=== PATIENT | female | born 1970 | race African-American/Black ===

== ENCOUNTER → 2020-01-17 13:03 | Outpatient (CLI) | payer BC, SELFPAY ==
--- NOTE | ~2020-01-17 | US_ITS ---
EXAMINATION: US soft tissue abdomen DATE: 01/17/2020 13:35 INDICATION: Nodule with 3 weeks of tenderness over a hysterectomy scar. TECHNIQUE: Multiple grayscale and Doppler ultrasound images of the region of concern at the anterior pelvic wall were obtained. COMPARISON: None FINDINGS/IMPRESSION: 9 x 10 x 4 mm hypoechoic nodular region with central tiny hyperdense focus located in the superficial subcutaneous tissues at the region of concern. Differential would include a suture granuloma, endome trial implant in the appropriate clinical setting or significantly less likely other primary neoplasm . Correlate with clinical history and could consider ultrasound-guided biopsy if clinically indicated . Reviewed, dictated and finalized at location B.
--- NOTE | ~2020-01-17 | US_ITS ---
EXAMINATION: US pelvic complete w TV DATE: 01/17/2020 13:36 INDICATION: Pelvic and perineal pain. History of breast cancer. Comparison:No prior studies for comparison. TECHNIQUE: Multiple transabdominal and endovaginal sonographic images of the pelvis performed. FINDINGS: The uterus and ovaries are surgically absent. No abnormal pelvic masses or fluid collection s. Bladder is unremarkable. IMPRESSION: 1. Unremarkable pelvic ultrasound status post total hysterectomy. Reviewed, dictated and finalized at location A.
== END ==
PROVIDERS: Visit Provider Obstetrics & Gynecology
DX: L90.5 Scar conditions and fibrosis of skin (principal); R10.2 Pelvic and perineal pain; R93.5 Abnormal findings on diagnostic imaging of other abdominal regions, including retroperitoneum; Z90.710 Acquired absence of both cervix and uterus
CPT/HCPCS: 76705; 76830; 76856

== ENCOUNTER 2022-11-14 09:05 | Emergency (ER) | payer BC, SELFPAY ==
--- NOTE | ~2022-11-14 | XR_ITS ---
EXAMINATION: XR ankle LT min 3V DATE: 11/14/2022 09:40 INDICATION: Lateral left ankle pain TECHNIQUE: Anteroposterior, oblique, mortise, and lateral views of the left ankle were obtained. COMPARISON: None. FINDINGS: Alignment is normal. No fracture. Joint spaces are well maintained. No ankle joint effusion. Modera te-sized plantar calcaneal spur. Additional enthesophytes at the anterior tip of the medial malleolus . Mild soft tissue swelling about the lateral malleolus. IMPRESSION: 1. No left ankle joint effusion or acute osseous abnormality. Reviewed, dictated and finalized at location A.
[2022-11-14 09:18] VITALS: BP 127/68; PULSE 55; RESP 16; TEMP 36.2; O2SAT 99
--- NOTE | 2022-11-14 09:25 | ED.LOWEXIN ---
HPI - Extremity Injury (Lower) General Chief Complaint: Extremity Injury, Lower Stated Complaint: left foot injury Time Seen by Provider: 11/14/22 09:50 Source: patient Mode of arrival: ambulatory Limitations: no limitations History of Present Illness HPI Narrative: 52-year-old female presents for complaint of left ankle pain and swelling after injury over 1 week ago. She states while she was walking out of her house she rolled her ankle. Has had pain radiating up the side of the left lower leg, behind the ankle and to the lateral aspect of the ankle. Endorses decreased ROM at the ankle due to pain. Has been elevating the leg when possible, applying ice/heat, and taking Tylenol. She has a walking boot from a previously broken toe, and has been wearing it while at work. Pt did not wear the boot to clinic. Denies numbness, tingling or weakness. Related Data Allergies Allergy/AdvReac Type Severity Reaction Status Date / Time iodine Allergy Unknown ANAPHYLAXIS Verified 11/14/22 09:18 latex Allergy Unknown Unknown Verified 11/14/22 09:18 minocycline Allergy Unknown Unknown Verified 11/14/22 09:18 shrimp Allergy Unknown ANAPHYLAXIS Verified 11/14/22 09:18 sumatriptan Allergy Unknown Unknown Verified 11/14/22 09:18 Review of Systems Review of Systems: CONSTITUTIONAL: Denies body aches, fever, chills EYES: Denies visual changes ENT: Denies rhinorrhea, congestion CARDIOVASCULAR: Denies chest pain, palpitations, or edema. RESPIRATORY: Denies cough or dyspnea. GASTROINTESTINAL: Denies abdominal pain, nausea, vomiting, or diarrhea. SKIN: Denies rash, itching, or wounds. MUSCULOSKELETAL: reports left ankle pain and swelling Denies back pain, or myalgia. NEUROLOGIC: Denies headache, numbness, tingling, or weakness. PSYCH: Denies depression or anxiety. All systems reviewed & are unremarkable except as noted in HPI and below PMFSH Past Medical History Medical History Acid reflux Anemia Diverticulosis IBS (irritable bowel syndrome) Malignant neoplasm of breast, estrogen receptor positive Migraines Surgical History Surgical History History of breast reconstruction History of hysterectomy with bilateral oophorectomy S/P endometrial ablation Family History Family History Mother Hypertension Father Family history of type 2 diabetes mellitus Social History Social History Smoking status: Never smoker Alcohol intake: current Comments At time of signature, I have reviewed and agree with nursing past medical, surgical, social and family history unless otherwise noted. Please see nursing chart for further information. There is no relevant family history pertinent to the presenting complaint Exam Narrative: GENERAL: Well-appearing, well-nourished, and in no acute distress. HEAD: Normocephalic, atraumatic. EYES: conjunctivae clear NECK: Supple. CHEST: Speaks in full sentences. No respiratory distress. HEART: Regular rate and rhythm. Normal and equal peripheral pulses. EXTREMITIES: Left lateral ankle swelling and tenderness to malleolus; foot with normal strength and sensation, decreased range of motion with flexion/extension/rotation, due to endorses pain with movement. No ecchymosis, No open wounds, or obvious deformity; alignment normal, pulse palpable and equal bilaterally, skin warm, dry, pink. Capillary refill less than 3 seconds. SKIN: Warm, dry, no rash. NEURO: Alert and oriented x3. PSYCH: Normal mood and affect Course Course Emergency Course: Patient is aware of diagnosis, understands and agrees to treatment plan. Anticipatory guidance given. Patient agrees to follow-up as directed and is aware of reasons to seek care at the emergency department. Portions of this record may
== END 2022-11-14 10:31 | disposition home or self-care (01) ==
PROVIDERS: Emergency Provider Nurse Practitioner Family; PCP Nurse Practitioner Family
DX: S93.402A Sprain of unspecified ligament of left ankle, initial encounter (principal); S96.912A Strain of unspecified muscle and tendon at ankle and foot level, left foot, initial encounter; X50.9XXA Other and unspecified overexertion or strenuous movements or postures, initial encounter; K21.9 Gastro-esophageal reflux disease without esophagitis; Z85.3 Personal history of malignant neoplasm of breast
CPT/HCPCS: 73610; 99213; G0463

== ENCOUNTER 2023-07-14 13:22 | Outpatient (CLI) | payer OTHER, SELFPAY ==
--- NOTE | ~2023-07-14 | US_ITS ---
US breast BI complete DATE: 07/14/2023 14:07 INDICATION: Mastodynia. History of bilateral mastectomy for breast cancer. TECHNIQUE: Real-time imaging of both breast areas COMPARISON: None FINDINGS: At 12:00 2 cm from the nipple. On the right there is a circumscribed hypoechoic 2.6 x 3.2 x 3.7 mm area without internal vascularity or posterior shadowing, most likely benign. Six-month follo w-up targeted ultrasound imaging is recommended. Alternatively, consider PET/CT imaging. IMPRESSION: BI-RADS Category 3: Probably benign Recommendation: 6 month targeted right breast ultrasound follow-up Alternatively, consider PET/CT imaging as clinically appropriate Reviewed, dictated and finalized at Location A. Reviewed, dictated and finalized at location A.
== END 2023-07-14 13:23 | disposition home or self-care (01) ==
LOC: ANHIMG 13:23
PROVIDERS: PCP Nurse Practitioner Family; Visit Provider Nurse Practitioner Family
DX: N64.4 Mastodynia (principal); Z85.3 Personal history of malignant neoplasm of breast; R92.8 Other abnormal and inconclusive findings on diagnostic imaging of breast
CPT/HCPCS: 76641

== ENCOUNTER 2023-07-29 16:18 | Outpatient (CLI) | payer OTHER, SELFPAY ==
--- NOTE | ~2023-07-29 | XR_ITS ---
EXAMINATION: XR chest 2V DATE: 07/29/2023 16:50 INDICATION: Chest pain TECHNIQUE: PA and lateral views of the chest were obtained. COMPARISON: None FINDINGS: The lungs are clear with no focal airspace opacities, pulmonary edema, pleural effusion or pneumothor ax. The cardiomediastinal silhouette is normal. Bilateral breast implants. Thoracic spondylosis. IMPRESSION: 1. No acute cardiopulmonary disease. Reviewed, dictated and finalized at location A.
== END 2023-07-29 16:19 ==
PROVIDERS: PCP Nurse Practitioner Family; Visit Provider Nurse Practitioner Family
DX: R07.9 Chest pain, unspecified (principal)
CPT/HCPCS: 71046

== ENCOUNTER 2024-08-27 10:41 | Emergency (ER) | payer OTHER, SELFPAY ==
--- OUTSIDE RECORDS SUMMARY | 2024-08-27 10:43 | XMS_ITS | Data Portability ---
Author Organization [facility] Address [address] [place] [address] Assessment Encounter Date Assessment Date Assessment LastModified by Organization Details LastModified Time 11/22/2014 11/22/2014 Full Podiatric history and physical performed. Evaluated patient's feet and discussed treatment options at length with the patient. The patient states that they understand all the information that was provided and that all questions were answered to their satisfaction. [email or web address] Not available 11/22/2014 12:24:59 12/18/2014 12/18/2014 continue CAM boot usage at all times. ICE, NSAID's as needed at home. f/u 2 weeks for new X-rays and possible removal of CAM boot. [email or web address] Not available 12/20/2014 14:28:43 Plan of Treatment Reminders Order Date Submit Date Provider Last Modified By Organization Details Last Modified Time Details Appointments None record ed. Lab None record ed. Referral None record ed. Procedures None record ed. Surgeries None record ed. Imaging None record ed. Medication Orders None record ed. Patient TargetsNo targets recorded. Patient Instructions Encounter Date Encounter Id Patient Instructions Last Modified By Organization Details Last Modified Time 11/22/2014 [id number] leg pain: care instructions [email or web address] Not available 11/22/2014 15:10:20 Reason for Referral None Reported. Problems Name Problem SNOMED Code Status Onset Date Resolution Date Notes Provider Name and Address Organization Details Recorded Time Closed fracture of phalanx of foot 36744301 [facility] 14:28:43 Pathological fracture 389338104 Active Herson Jillian null [place] - [facility] 5 14:28:43 Pain in lower limb 92994446 Active Herson Jillian null, [place] - [facility] 5 14:28:43 Problem Notes None recorded. Procedures Surgical History Date Name Laterality Status Provider Name and Address Organization Details Recorded Time 5 FRACTURE BOOT (L2116) completed iman hernandez dpm [address] [place] [address],[address], [place], [address], [place] - [facility] 11/22/2014 14:33:52 Imaging Results None recorded. Procedure Notes None recorded. Medical Equipment None Reported. Allergies Allergen ID Allergen Name Allergen Category Reaction Reaction Severity Criticality Documentation Date Start Date Code Code System Note Provider Name and Address Organization Details Recorded Time 6481 Imitrex medicatio n anaphylax is severe Not available 11/22/2014 99253 3 RxNorm Carmencita Bolaños [place], [place] - [facility] 5 12:23:46 6482 latex environme nt,medica tion rash moderate Not available 11/22/2014 22858 91 RxNorm Carmencita Bolaños [place], [place] - [facility] 5 12:23:46 6483 Minocin medicatio n rash moderate Not available 11/22/2014 56664 6 RxNorm Carmencita Miky null, [place] - [facility] 5 12:23:46 Medications Name Sig Start Date Stop Date Status Note LastModified by Organization Details LastModified Time estradiol 2 mg tablet active Not Available Not Available No t Available Vitals Date Recorded Body weight Body height Heart rate Body mass index (BMI) Systolic blood pressure Diastolic blood pressure Provider Name and Address Organization Details Last Updated DateTime 5 16677.9 9007 g 162.56 cm 69 /min 36.2 kg/m2 122 mm[Hg] 62 mm[Hg] Carmencita Potetran [place] - [facility] 5 12:23:45 Date Recorded Body weight Heart rate Body mass index (BMI) Body height Systolic blood pressure Diastolic blood pressure Provider Name and Address Organization Details Last Updated DateTime 5 08646.5 8244 g 69 /min 37.6 kg/m2 160.02 cm 122 mm[Hg] 64 mm[Hg] Carmencita Bolaños [place] - [facility] 5 15:29:20 Social History Question Answer Notes LastModified by Organizat ion Details LastModified Time Tobacco Smoking Status Never Smoker Not Available [employer] 01/16/2020 03:11:50 Are You Blind Or Do You Have Difficulty Seeing? No [id number] Information not available 01/16/2020 Are You Deaf Or Do You Have Serious Difficulty Hearing? No [id number] Information not available 01/16/2020 How Much Tobacco Do You Smoke? No [id number] Information not available 01/16/2020 Do You Have Difficulty Walking Or Climbing Stairs? No [id number] Information not available 01/16/2020 Sex: Unknown Functional Status Question Answer Note LastModified by Organization D etails LastModified Time Do you have difficulty doing errands alone? No [id number] Information not available 01/16/2020 Do you have difficulty dressing or bathing? No [id number] Information not available 01/16/2020 Mental Status Question Answer Note LastModified by Organization D etails LastModified Time Do you have difficulty concentrating, remembering or making decisions? Yes [id number] Information no t available 01/16/2020 Family History Relationship Description Onset Age of this Age Resolved Age Notes LastModified by Organization Details LastModified Time Mother Hypertensive disorder [email or web address] Not available 2014 15:29:21 Medical History Condition Response Varicose Veins N Diabetes N HIV or AIDS N Dyslipidemia N Gout N Bleeding Disorder N Stroke N Edema N Peripheral Vascular Disease N Back Pain N Polio N Hepatitis N Heart Disease N Rheumatoid Arthritis N Deep Vein Thrombosis N Leg Ulcers N Foot Deformity N Hypertension N Osteoporosis N Gynecological HistoryNo gynecological history recorded. Obstetrics History GPAL:G 0 P 0 0 0 0 Past Encounters Encounter ID Performer Location Encounter Start Date Encounter Closed Date Diagnosis/Indication Diagnosis SNOMED-CT Code Diagnosis ICD10 Code Diagnosis Note [id number] [facility] [address] [place] [address],[address] [address] 11/22/2014 12:02:22 11/22/2014 12:42:15 Closed fracture of phalanx of foot 12611273 Pathological fracture 745121655 Pain in lower limb 24014912 [id number] [facility] [address] [place] [address],[address] [place] [address] 12/18/2014 15:15:27 12/18/2014 16:03:52 Pain in lower limb 83887550 Pathological fracture 560895455 Closed fra cture of phalanx of foot 99413813 Health Concerns Section Related Observation LastModified by Organization Detai ls LastModified Time None Recorded Concern Status LastModified by Organization Details LastModified Time None Recorded Advance Directives Directive None Recorded Payers Encounter Date Sequence Insurance Name Policy Number Policy Zurita Covered Member ID Zurita Member ID Guarantor Name 11/22/2014 1 [facility] [place] [id number] Slime Miller [id number] Slime Miller 12/18/2014 1 [employer]: ([place]) [id number] Slime Miller [id number] Slime Miller Notes Date Note Type Note Provider Name and Address Organization Details Recorded Time 11/22/2014 text/html Slime found us online, went to urgent care which had x-ray taken and brought in CD, told left great toe is fractured. Two weeks ago garage door panel fell on foot and landed mostly on great toe. Pain is still intense and hard time bending toe. iman mary dpm [address] [place] [address],[address], [place], [address], [facility] 11/22/2014 14:55:32 12/18/2014 text/html Slime RTC wearing left foot cam boot and states she feels foot is more stiff than painful now. Herson Jillian null, [place] - [facility] 12/20/2014 14:28:44 OBGyn Episode No OBEpisode recorded.
--- OUTSIDE RECORDS SUMMARY | 2024-08-27 10:43 | XMS_ITS | CONTINUITY OF CARE DOCUMENT ---
Author Name elliott gallagher Address Unknown Organization [facility] Address [address] [place] [address] Phone [phone] Care Team Providers Care Mortising Machine Operator Name Role Phone Brennen Espinoza MD Unavailable [phone] Yanely Evans MD Unavailable TUTU GONZALEZ Unavailable [phone] PROBLEMS Condition Status Date Provider Notes Cardiovascular screening active Erica luna [employer] Payer name Policy type / Coverage type [place] [employer] ID SELF PAY TREATMENT PLAN Date Name CT, Coronary Calcium Score CT, Coronary Calcium Score
--- OUTSIDE RECORDS SUMMARY | 2024-08-27 10:43 | XMS_ITS | Data Portability ---
Author Organization [place] - [facility] [employer], Main Office Address [address] [place] [address] Assessment No assessment recorded. Plan of Treatment Reminders Order Date Submit Date Provider Last Modified By Organization Details Last Modified Time Details Appointments None recorded. Lab HIV (1+2) antibodies, EIA, serum, reflex HIV-1 western blot (WB) 2024 025 THOMASTON [facility], [address], [place], [address], 5 09:08:16 RPR (rapid plasma reagin), serum 2024 025 [email or web address] 4 [facility], [address], [place], [address], 5 15:48:05 hepatitis C virus Ab, serum 2024 025 [email or web address] 4 [facility], [address], [place], [address], 5 15:48:05 herpes simplex virus 1 + 2 IgG panel, serum or plasma 2024 025 4 [facility], [address], [place], [address], 5 15:48:05 chlamydia trachomatis + neisseria gonorrhoeae + trichomonas vaginalis DNA panel, GARRETT+probe, urine 2024 025 THOMASTON [facility] [address], [place], [address], 5 11:15:09 Referral None recorded. Procedures None recorded. Surgeries None recorded. Imaging MRI, breast, screening, abbreviated - Please call patient to schedule. [address] [facility], [address], [place], [address], 11:54:11 home sleep study - Please call patient to schedule. 2024 025 [place] [address] [facility] ([facility]), [address], [place], [address], 11:54:11 Medication Orders prasterone (DHEA) 6.5 mg vaginal insert 2024 025 THOMASTON [id number], [address] [facility], [place], [place], [id number], 5 12:39:58 compounded medication 2022 023 [facility], [address] [facility], [place], [address], 3 10:38:35 Patient TargetsNo targets recorded. Patient InstructionsNo instructions recorded. Reason for Referral None Reported. Results Created Date Observation Date Name Description Value Unit Range Abnormal Flag Note LastModifiedBy Organization Detail LastModifiedTime 04/08/1904/08/2022 HEMOG LOBIN A1C HA1C 5.6 % 4.0-6. 0 Diabe gerard Scree ingrid Crite mame: <5.7% Consi stent with absen ce of diabe gerard 5.7-6 .4% Consi stent with incre ased risk for diabe gerard (pred iabet es) >OR=6 .5% Consi stent with diabe gerard REFER ENCE: Diabe gerard Care 2016, 39(Dyer ppl.1 ):s13 -s22 Not Available [facility] ([facility]) [address] [facility] [place], [address], 04/08/2022 21:20:21 04/08/19 23 04/08/2022 TSH thyroid-stim ulating hormone 1.420 uIU/m L 0.465- 4.680 Not Available [facility] (Lab) [address] [place], [address], 04/08/2022 21:17:54 04/08/19 23 04/08/2022 LIPID PANEL cholesterol 237 mg/dL 140-19 9 high NIH NICOLE NSUS RECOM MENDA TION FOR CHONG STERO L: ADULT CHILD LOW RISK: <200 <170 BORDE RLINE : <200- 239 ----- HIGH RISK: >240 >200 Not Available [facility] (Lab) [address] [place], [address], 04/08/2022 20:48:39 04/08/19 23 04/08/2022 LIPID PANEL triglyceride s 63 mg/dL 0-150 NIH NICOLE NSUS REPOR T RECOM MENDA TION FOR TRIGL YCERI DARREN: ADULT CHILD LOW RISK: <150 ----- BODER LINE: 150-1 99 ----- HIGH RISK: >200 ----- Not Available [facility] (Lab) [address] [place], [address], 04/08/2022 20:48:39 04/08/19 23 04/08/2022 LIPID PANEL HDL cholesterol 64 mg/dL 40- Not Available [facility] (Lab) [address] [place], [address], 04/08/2022 20:48:39 04/08/19 23 04/08/2022 LIPID PANEL LDL cholesterol, calculated 160 mg/dL 0-130 high NIH NICOLE NSUS REPOR T RECOM MENDA TIONS FOR LDL: ADULT CHILD LOW RISK <130 <110 (OPTI MAL LDL) <100 ----- BORDE RLINE : 130-1 59 ----- HIGH RISK: >160 >130 A TRIGL YCERI DE RESUL T >400 INVAL IDATE S THE CALCU LATIO N FOR LDL FRACT IONAT ION - THE LDL RESUL T WILL NOT BE REPOR KASSIE. Not Available [facility] (Lab) [address] [place], [address], 04/08/2022 20:48:39 04/08/19 23 04/08/2022 COMPR EHENS VISHAL METAB OLIC PANEL sodium 139 mmol/ L 137-14 5 Not Available [facility] (Lab) [address] [place], [address], 04/08/2022 20:48:32 04/08/19 23 04/08/2022 COMPR EHENS VISHAL METAB OLIC PANEL potassium 4.3 mmol/ L 3.5-5. 1 Not Available [facility] (Lab) [address] [place], [address], 04/08/2022 20:48:32 04/08/19 23 04/08/2022 COMPR EHENS VISHAL METAB OLIC PANEL chloride 103 mmol/ L 98-107 Not Available [facility] (Lab) [address] [place], [address], 04/08/2022 20:48:32 04/08/19 23 04/08/2022 COMPR EHENS VISHAL METAB OLIC PANEL carbon dioxide 31 mmol/ L 22-30 high Not Available [facility] (Lab) [address] [place], [address], 04/08/2022 20:48:32 04/08/19 23 04/08/2022 COMPR EHENS VISHAL METAB OLIC PANEL anion gap 9.3 mmol/ L 14-22 low Not Available [facility] (Lab) [address] [place], [address], 04/08/2022 20:48:32 04/08/19 23 04/08/2022 COMPR EHENS VISHAL METAB OLIC PANEL glucose 101 mg/dL 70-99 high Not Available [facility] (Lab) [address] [place], [address], 04/08/2022 20:48:32 04/08/19 23 04/08/2022 COMPR EHENS VISHAL METAB OLIC PANEL BUN 18 mg/dL 8-19 Not Available [facility] (Lab) [address] [place], [address], 04/08/2022 20:48:32 04/08/19 23 04/08/2022 COMPR EHENS VISHAL METAB OLIC PANEL creatinine 1.03 mg/dL 0.66-1 .25 Not Available [facility] (Lab) [address] [place], [address], 04/08/2022 20:48:32 04/08/19 23 04/08/2022 COMPR EHENS VISHAL METAB OLIC PANEL GFR >60 Refer ence Range : [place] [facility] GFR Healt hy Adult : >60 mL/mi n/1.7 3 m2 Chron ic Kidne y Disea se: 15-60 mL/mi n/1.7 3 m2 Kidne y Failu re: <15/m L/min /1.73 m2 www.n iddk. nih.g ov The MDRD study equat ion has not been valid ated in child raisa <18 years of age; pregn ant women ; the elder ly >85 years of age; or in some racia l or ethni c subgr oups, such as [facility] nics. Outsi de the valid ated martha eters , estim ated GFR is less accur ate, requi ring clini theodore judgm ent on a case- by-ca se basis . Clini theodore inter preta tion for other races and ages must be made by the clini giselle. The MDRD study equat ion has not been valid ated for the evalu ation of serum creat inine relat ed to nutri becky l statu s or medic ation usage . For perso ns <18 years of age, a pedia tric GFR calcu lator is avail able on the [facility] websi te: https ://da w.sahara harrison.o rg/pr ofess ional s/kdo qi/gf r_cal culat or Not Available [facility] (Lab) [address] [place], [address], 04/08/2022 20:48:32 04/08/19 23 04/08/2022 COMPR EHENS VISHAL METAB OLIC PANEL alkaline phosphatase 91 U/L 38-126 Not Available [facility] (Lab) [address] [place], [address], 04/08/2022 20:48:32 04/08/19 23 04/08/2022 COMPR EHENS VISHAL METAB OLIC PANEL alanine aminotransfe rase 20 U/L 0-35 Not Available [facility] (Lab) [address] [place], [address], 04/08/2022 20:48:32 04/08/19 23 04/08/2022 COMPR EHENS VISHAL METAB OLIC PANEL aspartate aminotransfe rase 25 U/L 15-37 Not Available [facility] (Lab) [address] [place], [address], 04/08/2022 20:48:32 04/08/19 23 04/08/2022 COMPR EHENS VISHAL METAB OLIC PANEL bilirubin, total 0.20 mg/dL 0.20-1 .30 Not Available [facility] (Lab) [address] [place], [address], 04/08/2022 20:48:32 04/08/19 23 04/08/2022 COMPR EHENS VISHAL METAB OLIC PANEL calcium 9.6 mg/dL 8.4-10 .2 Not Available [facility] (Lab) [address] [place], [address], 04/08/2022 20:48:32 04/08/19 23 04/08/2022 COMPR EHENS VISHAL METAB OLIC PANEL total protein 6.9 g/dL 6.3-8. 2 Not Available [facility] (Lab) [address] [place], [address], 04/08/2022 20:48:32 04/08/19 23 04/08/2022 COMPR EHENS VISHAL METAB OLIC PANEL albumin 4.0 g/dL 3.4-5. 0 Not Available [facility] (Lab) [address] [place], [address], 04/08/2022 20:48:32 04/08/19 23 04/08/2022 COMPR EHENS VISHAL METAB OLIC PANEL globulin 2.9 g/dL 2.6-4. 2 Not Available [facility] (Lab) [address] [place], [address], 04/08/2022 20:48:32 04/08/19 23 04/08/2022 COMPR EHENS VISHAL METAB OLIC PANEL A/G ratio 1.4 ratio 1.0-2. 0 Not Available [facility] (Lab) [address] [place], [address], 04/08/2022 20:48:32 04/08/19 23 04/08/2022 CBC W/O DIFFE RENTI AL white blood cells 7.3 x10'3 /uL 4.2-10 .8 Not Available [facility] (Lab) [address] [place], [address], 04/08/2022 20:18:01 04/08/19 23 04/08/2022 CBC W/O DIFFE RENTI AL red blood cells 4.72 x10'6 /uL 3.80-5 .20 Not Available [facility] (Lab) [address] [place], [address], 04/08/2022 20:18:01 04/08/19 23 04/08/2022 CBC W/O DIFFE RENTI AL hemoglobin 12.9 g/dL 12.0-1 5.6 Not Available [facility] (Lab) [address] [place], [address], 04/08/2022 20:18:01 04/08/19 23 04/08/2022 CBC W/O DIFFE RENTI AL hematocrit 41.8 % 35.7-4 5.7 Not Available [facility] (Lab) [address] [place], [address], 04/08/2022 20:18:01 04/08/19 23 04/08/2022 CBC W/O DIFFE RENTI AL mean red cell volume 88.6 fL 82.0-9 9.0 Not Available [facility] (Lab) [address] [place], [address], 04/08/2022 20:18:01 04/08/19 23 04/08/2022 CBC W/O DIFFE RENTI AL mean red cell hemoglobin 27.3 pg 27.0-3 3.0 Not Available [facility] (Lab) [address] [place], [address], 04/08/2022 20:18:01 04/08/19 23 04/08/2022 CBC W/O DIFFE RENTI AL mean RBC HGB concentratio n 30.9 g/dL 31.0-3 6.0 low Not Available [facility] (Lab) [address] [place], [address], 04/08/2022 20:18:01 04/08/19 23 04/08/2022 CBC W/O DIFFE RENTI AL red cell distribution width 13.0 % 11.8-1 5.5 Not Available [facility] (Lab) [address] [place], [address], 04/08/2022 20:18:01 04/08/19 23 04/08/2022 CBC W/O DIFFE RENTI AL platelets 273 x10'3 /uL 150-40 0 Not Available [facility] (Lab) [address] [place], [address], 04/08/2022 20:18:01 04/08/19 23 04/08/2022 CBC W/O DIFFE CARLINE AL mean platelet volume 12.0 fL 9.0-12 .4 Not Available [facility] (Lab) [address], [place], [address], 04/08/2022 20:18:01 11/15/19 23 11/14/2022 XR, ankle No observ ation record ed. [email or web address] [facility] [address], [place], [address], 11/30/2022 14:56:25 12/10/19 23 12/09/2022 CT, coron petr calci um score No observ ation record ed. [email or web address] [facility] [address], [place], [address], 12/10/2022 09:27:24 Result Notes None recorded. Problems Name Problem SNOMED Code Status Onset Date Resolution Date Notes Provider Name and Address Organization Details Recorded Time Cystic acne 02416902 Active 2022 EDMAR Fried [address], [address], [place], [address], [employer] 3 10:18:50 Obesity 043206075 Active 2022 EDMAR Fried [address], [address], [place], [address], [employer] 3 10:22:54 Hyperlipide jaja 65354511 Active 2022 EDMAR Fried [address], [address], [place], [address], [employer] 3 10:27:56 Menopausal flushing 759386441 Active 2022 EDMAR Fried [address], [address], [place], [address], [employer] 3 13:31:17 Pain of left wrist 0073021289743 02 Active 2022 Anmol Curiel, [employer] [address], [address], [place], [address], [employer] 3 13:38:40 Sleep apnea 62045360 Active 2024 Deirdre SierraYAMEL nortonP [address] [facility], [address], [place], [address], [employer] 5 12:23:07 Atrophic vaginitis 76320473 Active 2024 Deirdre Xavi [employer] [address], [address], [place], [address], [employer] 5 12:30:53 Viral upper respiratory tract infection 708637592 Active 2024 Deirdre Sierracierra [facility] [address], [place], [address], [employer] 5 09:58:07 Problem Notes None recorded. Procedures Surgical History Date Name Laterality Status Provider Name and Address Organization Details Recorded Time Hysterectomy completed Not Available [facility] 05/20/2022 22:21:58 bilateral reconstruction of breasts completed Not Available [facility] 05/20/2022 22:21:58 excision of bilateral breasts completed Not Available [facility] 3 22:21:58 Imaging Results None recorded. Procedure Notes None recorded. Medical Equipment None Reported. Allergies Allergen ID Allergen Name Allergen Category Reaction Reaction Severity Criticality Documentation Date Start Date Code Code System Note Provider Name and Address Organization Details Recorded Time 65996 latex environme nt,medica tion Not available Not available Not available 05/20/2022 34293 91 RxNorm Not Available formerly [facility] 3 22:23:00 58092 iodine medicatio n Not available Not available Not available 05/20/2022 5933 RxNorm Not Available formerly [facility] 3 22:23:00 39992 Imitrex medicatio n Not available Not available Not available 05/20/2022 65993 3 RxNorm Not Available formerly [facility] 3 22:23:00 Medications Name Sig Start Date Stop Date Status Note LastModified by Organization Details LastModified Time compounded medication Take one tab SL daily 2022 active Not Available Not Available Not Avai lable cyclobenzap rine 10 mg tablet TAKE 1 TABLET BY MOUTH EVERY 8 HOURS NEEDED FOR MUSCLE SPASMS 06/28 completed Not Available Not Available Not Available prednisone 10 mg tablet TAKE DIRECTED 09/15 completed Not Available Not Available Not Available azithromyci n 250 mg tablet TAKE 2 TABLETS BY MOUTH FOR 1 DAY THEN TAKE 1 TABLET BY MOUTH DAILY FOR 5 DAYS 06/28 completed Not Available Not Available Not Available hydrocodone 5 mg-acetamin ophen 325 mg tablet TAKE 1 TABLET BY MOUTH EVERY 4 TO 6 HOURS NEEDED FOR PAIN active Not Available Not Available No t Available ondansetron HCl 4 mg tablet TAKE 1 TABLET BY MOUTH EVERY 8 HOURS NEEDED FOR NAUSEA 06/28 completed Not Available Not Available Not Available spironolact one 100 mg tablet TAKE 1 TABLET BY MOUTH DAILY 2024 active Not Available Not Available Not Avai lable fluocinonid e 0.05 % topical ointment APPLY SMALL AMOUNT TOPICALLY TO THE AFFECTED AREA 2 TO 3 TIMES PER DAY active Not Available Not Available No t Available acetaminoph en 300 mg-codeine 30 mg tablet TAKE 1 TABLET BY MOUTH EVERY 6 HOURS NEEDED 06/28 completed Not Available Not Available Not Available tretinoin 0.05 % topical cream APPLY A PEA SIZED AMOUNT TO THE FACE EVERY NIGHT AT BEDTIME 06/28 completed Not Available Not Available Not Available peg-electro lyte solution 420 gram oral solution 06/28 completed Not Available Not Available Not Available triamcinolo ne acetonide 0.1 % topical cream APPLY TOPICALLY TO THE AFFECTED AREA TWICE DAILY AT ONSET OF FLARES. NO MORE THAN 3 WEEKS INAROW 06/28 completed Not Available Not Available Not Available oxycodone-a cetaminophe n 5 mg-325 mg tablet TAKE 1 TABLET BY MOUTH EVERY 4 TO 6 HOURS NEEDED FOR PAIN 06/28 completed Not Available Not Available Not Available omeprazole 10 mg capsule,del ayed release TAKE 1 CAPSULE BY MOUTH DAILY active Not Available Not Available No t Available cephalexin 500 mg capsule TAKE 1 CAPSULE BY MOUTH FOUR TIMES DAILY 06/28 completed Not Available Not Available Not Available triamcinolo ne acetonide 0.1 % topical ointment 06/28 completed Not Available Not Available Not Available docusate sodium 100 mg capsule TAKE 1 CAPSULE BY MOUTH TWICE DAILY active Not Available Not Available No t Available mupirocin 2 % topical ointment APPLY TOPICALLY TO THE AFFECTED AREA THREE TIMES DAILY 06/28 completed Not Available Not Available Not Available levofloxaci n 750 mg tablet TAKE 1 TABLET BY MOUTH DAILY active Not Available Not Available No t Available methylpredn isolone 4 mg tablets in a dose pack FOLLOW PACKAGE DIRECTION S active Not Available Not Available No t Available ondansetron 4 mg disintegrat ing tablet 06/28 completed Not Available Not Available Not Available naproxen 500 mg tablet 06/28 completed Not Available Not Available Not Available diazepam 5 mg tablet TAKE 1 TABLET BY MOUTH EVERY 8 HOURS NEEDED active Not Available Not Available No t Available amoxicillin 875 mg-potassiu m clavulanate 125 mg tablet TAKE 1 TABLET BY MOUTH TWICE DAILY FOR 10 DAYS 09/15 completed Not Available Not Available Not Available hydroxyzine pamoate 25 mg capsule TAKE 1 CAPSULE BY MOUTH EVERY 6 HOURS NEEDED 15 MINUTES BEFORE PAIN MEDICINE active Not Available Not Available No t Available clindamycin 1 % lotion APPLY TO THE AFFECTED AREA ON FACE ONCE DAILY 06/28 completed Not Available Not Available Not Available prasterone (DHEA) 6.5 mg vaginal insert Insert 1 vaginal insert every day by vaginal route as directed for 28 days. 2024 active Not Available Not Available Not Avai lable Ozempic 0.25 mg or 0.5 mg (2 mg/1.5 mL) subcutaneou s pen injector INJECT 0.5 MG SUBCUTANE OUSLY ONCE WEEKLY 06/28 completed Not Available Not Available Not Available Ozempic 1 mg/dose (4 mg/3 mL) subcutaneou s pen injector INJECT 1 MG SUBCUTANE OUSLY EVERY WEEK 06/28 completed Not Available Not Available Not Available BinaxNOW COVID-19 Ag Self Test kit TEST DIRECTED TODAY 06/28 completed Not Available Not Available Not Available Zepbound 2.5 mg/0.5 mL subcutaneou s pen injector ADMINISTE R 2.5 MG UNDER THE SKIN WEEKLY FOR 4 WEEKS 06/28 completed Not Available Not Available Not Available Vitals Date Recorded Body mass index (BMI) Body height Oxygen saturation Oxygen saturation in Arterial blood by Pulse oximetry Heart rate Body temperature Body weight Systolic blood pressure Diastolic blood pressure Provider Name and Address Organization Details Last Updated DateTime 3 42.1 kg/m2 157.48 cm 97 % 97 % 58 /min 95.9 [degF] 701553. 25 g 120 mm[Hg] 80 mm[Hg] Not Available [facility] 3 22:22:03 Date Recorded Body weight Body mass index (BMI) Body height Body temperature Heart rate Oxygen saturation Oxygen saturation in Arterial blood by Pulse oximetry Respiratory rate Systolic blood pressure Diastolic blood pressure Provider Name and Address Organization Details Last Updated DateTime 5 24878.1 9 g 39.9 kg/m2 157.48 cm 97.4 [degF] 53 /min 98 % 98 % 20 /min 134 mm[Hg] 82 mm[Hg] Mary Song RN [facility] [employer] 5 12:10:22 Date Recorded Body height Body temperature Heart rate Respiratory rate Oxygen saturation Oxygen saturation in Arterial blood by Pulse oximetry Systolic blood pressure Diastolic blood pressure Provider Name and Address Organization Details Last Updated DateTime 5 157.48 cm 97.5 [degF] 63 /min 20 /min 98 % 98 % 152 mm[Hg] 102 mm[Hg] Mary Song RN [facility] [employer] [facility] 5 11:44:03 Date Recorded Body height Body mass index (BMI) Body weight Oxygen saturation Oxygen saturation in Arterial blood by Pulse oximetry Heart rate Body temperature Systolic blood pressure Diastolic blood pressure Provider Name and Address Organization Details Last Updated DateTime 3 157.48 cm 39.7 kg/m2 18871.5 4 g 97 % 97 % 65 /min 94.9 [degF] 118 mm[Hg] 78 mm[Hg] Ludy Villa RN [facility] [employer] 3 09:36:08 Social History Question Answer Notes LastModified by Organizat ion Details LastModified Time Tobacco Smoking Status Never Smoker Not Available [facility] 05/20/2022 22:21:51 What Is Your Level Of Caffeine Consumption? Moderate Information not available 06/30/2024 In The 14 Days Before Symptom Onset, Have You Had Close Contact With A Laboratory-confi rmed COVID-19 While That Case Was Ill? No [id number] Information not available 05/20/2022 In The 14 Days Before Symptom Onset, Have You Had Close Contact With A Person Who Is Under Investigation For COVID-19 While That Person Was Ill? No [id number] Information not available 05/20/2022 What Type Of Diet Are You Following? REGULAR Information not available 06/28/2024 Have There Been Any Changes To Your Family Or Social Situation? Yes Getting , Recent Surgery Information not available 06/28/2024 Do You Use Insect Repellent Routinely? No Information not available 06/28/2024 Where Do You Live? [facility] Information not available 06/28/2024 Have You Ever Been Counseled For Unhealthy Alcohol Use? No [id number] Information not available 05/20/2022 Do You Have Any Pets? No Information not available 06/28/2024 Do You Use Your Seat Belt Or Car Seat Routinely? Yes Information not available 06/28/2024 Do You Have Smoke And Carbon Monoxide Detectors In Your Home? Yes Information not available 06/28/2024 Are You Passively Exposed To Smoke? No Information not available 06/28/2024 Are There Any Smokers In Your House? No Information not available 06/28/2024 Do You Participate In Social Media? Yes Information not available 06/28/2024 Do You Use Sunscreen Routinely? Yes Information not available 06/28/2024 Has Tobacco Cessation Counseling Been Provided? No [id number] Information not available 05/20/2022 Have You Recently Traveled Abroad? No [id number] Information not available 05/20/2022 Do You Have Any Dietary Restrictions? No [id number] Information not available 05/20/2022 Sex: Unknown Functional Status Question Answer Note LastModified by Organizat ion Details LastModified Time Do you use any illicit or recreational drugs? No [id number] Information not available 05/20/2022 Do you or have you ever used any other forms of tobacco or nicotine? No [id number] Information not available 05/20/2022 What is your level of alcohol consumption? Occasional [id number] Information not available 05/20/2022 Are you currently employed? Yes Information not available 06/28/2024 What is your occupation? real [email or web address] Information not available 06/28/2024 What is your exercise level? None Information not available 06/30/2024 Mental Status Question Answer Note LastModified by Organization D etails LastModified Time Do you feel stressed (tense, restless, nervous, or anxious, or unable to sleep at night)? [id number] Information not available 06/28/2024 Family History Relationship Description Onset Age of this Age Resolved Age Notes LastModified by Organization Details LastModified Time Mother Hypertensive disorder [id number] Not available 05/20/2022 22:21:58 Father Diabetes mellitus [id number] Not available 05/20/2022 22:21:58 Maternal Aunt Family history of malignant neoplasm Not available 2024 11:40:29 Medical History Condition Response CANCER: SPECIFY Y OBESITY Y HAVE YOU BEEN HOSPITALIZED OR SEEN IN [facility] ER IN THE PAST YEAR ? Y Gynecological History Statement/Question Response Date of Last Pap Smear Date of Last Colonoscopy Most Recent Mammogram Date of LMP Most Recent Bone Density Obstetrics History GPAL:G 0 P 0 0 0 0 Immunizations Vaccine Type Date Status Note Provider [facility] e and Address Organization Details Recorded Time COVID-19 mRNA, bivalent, original/Omicr on BA.1, Non-US Vaccine (Spikevax Bivalent), Moderna 06/13/2024 completed Mary Song RN [facility], [place] - [facility] [employer] [facility] 06/30/2024 11:41:03 Past Encounters Encounter ID Performer Location Encounter Start Date Encounter Closed Date Diagnosis/Indication Diagnosis SNOMED-CT Code Diagnosis ICD10 Code Diagnosis Note [id number] Margoth Gomez MD [facility] [address] [place] [address] 04/08/2022 00:00:00 04/08/2022 20:04:00 [id number] EDMAR Fried [facility] Rafita pedersen [address] [facility] [address] [address] [place] [address] 09/15/2022 09:22:51 09/15/2022 13:55:06 Cystic acne 36548500 L70.0 New problemPt believes it is s/e of the Ozempic. Seeing dermatolog y and started on clindamyci n and tretinoin. Obesity 276853977 E66.9 ChronicNot improved despite report of dieting/li festyle changes.Ad vised eat 3 meals daily with 1-2 healthy snacks, eliminate caloric drinks, no grazing btw meals, reduce packaged foods, portion control, modificati on of cooking style, low fat/low sugar items, 30 minutes of exercise at least 3x/week, reduce emotional/ stress eating, increase fruits/veg etables, take 15-20 minutes to eat.Pt unable to qualify for GLP-1 through insurance since she is not diabetic. Advised pt to trial compounded semaglutid e daily instead. Pt agrees to trial.Sema glutide 500mcg SL daily Hyperlipidemia [id number] E78.5 New finding on labstotal 237, ldl 160Recomme nd diet/exerc ise modificati ons. Increase intake of water/vege tables, decrease intake of greasy/fat ty/fried foods, and consider addition of daily fish oil supplement or niacin Menopausal flushing 1984 28123 N95.1 New problemDis cussed options to treat menopausal sx. Advised pt she is not a candidate for any HRT, including progestero ne, d/t E2 receptor positive breast cancer resulting in bilat mastectomy . Recommend pt consider antidepres elvis therapy instead as SSRIs and SNRIs have been shown to improve vasomotor sx. Pt to consider options and discuss during next office visit. Pain of left wrist 23475 [id number] 59024 M25.532 New problem s/p fall on 09/13/22Inj ured while roller skatingPer pt xrays negAdvised to continue with RICE and f/u with Dr. Lucas's office as scheduled. [id number] Peter Zamora MD [facility] [address] [address] 06/28/2024 11:52:02 06/28/2024 12:55:01 Adult health examination [id number] Z00.00 Patient is overall healthHeal th maintenanc e reviewedDi scussed diet and exercisePa tient questions answered Sleep apnea [id number] G47 .30 Sleep study many years ago, would like to repeat History of malignant neoplasm of breast [id number] Z85.3 Has lumpectomy and reconstruc tion with implants, is not seeing a cancer specialist Atrophic vaginitis 52511 000 N95.2 Contraindi cated for estrogen therapies due to breast cancer Venereal d isease screening [id number] Z11.3 Would like full panel [id number] Peter Zamora MD [facility] [address] [address] 06/30/2024 11:30:37 06/30/2024 12:33:15 Gynecologic examination [id number] Z01.419 Overall healthyDis cussed vaginal hygiene and safe sex practicesD iscussed monthly self breast examsPatie nt questions answeredMR I breast ordered Health Concerns Section Related Observation LastModified by Organization Detai ls LastModified Time None Recorded Concern Status LastModified by Organization Details LastModified Time None Recorded Advance Directives Directive None Recorded Payers Encounter Date Sequence Insurance Name Policy Number Policy Zurita Covered Member ID Zurita Member ID Guarantor Name 09/15/2022 1 [place] [id number] Slime Miller [id number] Slime Miller 06/28/2024 1 [facility] Slime Miller [id number] Slime Miller 06/30/2024 1 [facility] Slime Miller [id number] Slime Miller Notes Date Note Type Note Provider Name and Address Organization Details Recorded Time 09/15/2022 text/html 1. Pt in office for f/u on Mounjaro/Ozempic. Pt states insurance won't cover GLP-1s unless she is actually diabetic. Pt states she is hoping to get something similar because she was successful with weight loss. Her only complaint is that it caused her to break out on her chin really bad. Reports she is getting tretinoin and clindamycin from her energy crop farmer.2. Pt states that she fell on Wednesday while skating with her niece. Pt states that she reached back with left hand to catch herself and injured her wrist. Pt states that she went to and had an xray, was told there was no fx and advised to keep it wrapped, take naproxen, apply ice and elevate hand. Pt states she is concerned that she might have a tendon injury b/c she also has a hx of carpal tunnel syndrome.3. Pt c/o having hot flashes, would like to get on progesterone to help balance out her hormones. Pt aware she isn't able to take estrogen d/t estrogen receptor positive breast cancer. ED[facility] Fried [address], [place], [address], [email or web address] 09/15/2022 13:41:05 06/28/2024 text/html Slime Miller i s a 54 year old female patient here today to establish care. She has a breast revision surgery yesterday related to breast concern in 2018. She is currently taking diazepam 5 mg, hydroxyzine 25 mg, and [place] 5/325mg She sees a weight loss clinic ([facility]) and receives compounded tirzepatide. She has lost 40 lbs with this. She is paying $1,000 per month for this, is interested in arevalo pay through walkby She does have EMMA. She is unsure of her last sleep study. She does use a CPAP at home. She has a history of acne, she is taking spironolactone 100 mg. Is getting soon and would like a Full STI panel. Flu shot: declinesCOVID vaccines: x3Tdap: 2018 per ptWWE: recommendedMammogram : has implants, did do an ultrasound recentlyColonoscopy: 2022, repeat in 5 years EDMAR Ibanez [address], [place], [address], [email or web address] 06/28/2024 12:53:44 06/30/2024 text/html Pap/PelvicReport ed bypatient.Context:ap pt for screening pap/pelvic/breast exam; no gynecologic complaints Associated Factors:low risk sexual historyNotes:Patient had a total hysterectomy at 27 years oldHx of breast cancer, had a reconstruction surgery earlier this week, has some pain in the right breast Deirdre Hurley, PORT TRAFFIC MANAGER [address] [facility] [address], [place], [address], [place] [facility] 06/30/2024 12:30:46 OBGyn Episode No OBEpisode recorded.
--- OUTSIDE RECORDS SUMMARY | 2024-08-27 10:43 | XMS_ITS | Clinical Summary ---
Author Organization [facility] Address [address] [place] [address] Care Team Providers Care Digital Account Coordinator Name Role Phone None, Physician Primary Care Provider Unavailabl e Source Comments [facility],non-owned Affiliates and Associated Physician Practices is amultiple site organization consisting of ambulatory clinics and hospital sitesin [place], [place], [place] and [place]. This disclosure is being madepursuant to the Care Everywhere program and may not contain all information available regarding this patient. Last updated 17.[facility] Allergies Active Allergy Reactions Criticality Noted Date Comments Povidone Iodine Anaphylaxis High 03/26/2017 Latex Urticaria,Skin Reactions Medium 07/30/2015 Minocycline Urticaria,Skin Reactions Medium 07/30/2015 Shellfish Allergy Anaphylaxis,Shortnes s of Breath High 03/26/2017 Throat swelling Sumatriptan Anaphylaxis High Medications * Be aware that medications may not be up to date on this document. Alwaysverify current medications with the patient. B Complex Vitamins CAPS Take 1 capsule by mouth once daily Active Magnesium Oxide 400 MG Take 1 tablet by mouth once daily Active multivitamin daily tablet Take 1 (one) tablet by mouth daily with food Active Probiotic Product (PROBIOTIC DAILY PO) Take by mouth once daily Active Diindolylmethan e Take by mouth once daily OTC Estrogen enhancer \ AKA DIM Active clindamycin (Cleocin) 1 % lotion APPLY TO THE AFFECTED AREA ON FACE ONCE DAILY 3 Active mupirocin (Bactroban) 2 % ointment APPLY TOPICALLY TO THE AFFECTED AREA THREE TIMES DAILY 3 Active CPAP Use as directed Active Tirzepatide (MOUNJARO SC) Active Active Problems Problem Noted Date Diagnosed Date Breast cancer, left, overlapping sites 2017 02/19 Cancer Staging:Clinical stage from 03/09/2017:Stage 0(Tis (DCIS), N0, M0) - Signed by Melly Hernandez MD on 03/26/2017 Pathologic stage from 04/26/2017:Stage 0(Tis (DCIS), N0(i-), cM0) - Signed by Melly Hernandez MD on 04/26/2017 Overview (11/01/2017): Left, 3:00. High grade DCIS. Tis(DCIS)N0(i-)M0, stage 0. ER pos, IA neg 03/23/2017 [employer] testing on patient (done with Dr. Blount): No cancer causing genes. 3 variants of uncertain significance. Variant of uncertain significance of RALPH [c.5319+6_5319+7del]. VUS of CDKN2A (r69FIN3z) [c.369T>A (p.Vkr065Rrp) (aka H123Q (369T>A))]. VUS of MUTYH [c.1249C>T (p.Qab526Naw (aka R403C (1207C>T), c.1207C>T (p.Fto210Lty))]. [employer] panel genetic testing after 10/07/2015 includes: APC, RALPH, BARD1, BMPR1A, BRCA1, BRCA2, BRIP1, CDH1, CDK4, CDKN2A, CHEK2, EPCAM (large rearrangement only), GREM1, MLH1, MSH2, MSH6, MUTYH, NBN, PALB2, PMS2, POLD1, POLE, PTEN, RAD51C, RAD51D, SMAD4, STK11, TP53. Have copy. 11/01/2017 update: [employer] says VUS remain VUS. bx at [facility]: evgeny Jauregui, then dafne; Plastics: saw Consuelo, and saw Dr. Ontiveros S/p 04/21/2017 bilateral nipple sparing simple mastectomy, left sentinel node biopsy with immediate pre-pectoral breast reconstruction with tissue cotton picker operator and acellular dermal matrix via Ascencio pattern mastopexy incisions (dafne/Weston): 2.0 cm high grade DCIS. 2 neg nodes. Neg margin >10 mm. Right benign Atopic dermatitis 09/17/2015 Overview (06/21/2017): ICD-10 Update Disorder of pigmentation 07/30/2015 Acne vulgaris 07/30/2015 Encounters Date Type Department Care Team Description 06/26/2024 10:16 AM CDT Anesthesia Event [facility] [address] [place] [address] Jesus Berrios MD Vivian, Jayme S, PARTS REMOVER-HOUSEKEEPING DIRECTOR 06/26/2024 9:55 AM CDT - 06/26/2024 1:55 PM CDT Surgery [facility] [address] [place] [address] Redd Ontiveros MD EXCISION OF BILATERAL CHEST DOG EARS 06/26/2024 8:50 AM CDT - 06/26/2024 2:37 PM CDT Hospital Encounter [facility] [address] [place] [address] Redd Ontiveros MD Surgery General Discharge Disposition: Home or Self Care 06/26/2024 Travel 06/19/2024 Travel from Last 3 Months Family History Medical History Relation Name Comments Cancer - Breast Other 1 pat 1/2 aunt flor Conner huey in her 50s; mat 1/2 sister of patients father Cancer - Breast Other 2 pat 1/2 aunt again contra lateral breast age 53, Flores, twin of Dalila, living in her 50s; mat 1/2 sister of patients father Cancer - Colon Other 3 pat 1/2 aunt Yari, i n her 50s; mat 1/2 sister of patients father Cancer - Other Other 4 pat 1/2 uncle brain cancer , [place]; living in his 50s; mat 1/2 brother of patients father Relation Name Status Comments Brother Alive Father Alive Maternal Grandfather Maternal Grandmother Mother Alive Other 1 pat 1/2 aunt Alive Other 2 pat 1/2 aunt Alive Other 3 pat 1/2 aunt Other 4 pat 1/2 uncle Alive Paternal Grandfather Paternal Grandmother Alive Sister Alive Social History Tobacco Use Types Packs/Day Years Used Date Smoking Tobacco: Never Smokeless Tobacco: Never Tobacco Cessation:Counseling Given: Not Answered Alcohol Use Standard Drinks/Week Comments Yes 0 (1 standard drink = 0.6 oz pur e alcohol) social - 2 x months AUDIT-C Answer Date Recorded Q1: How often do you have a drink containing alc ohol? 2-4 times a month 06/26/2024 Q2: How many drinks containi ng alcohol do you have on a typical day when you are drinking? 1 or 2 06/26/2024 Q3: How often do you have si x or more drinks on one occasion? Never 06/26/2024 PHQ-2 Answer Date Recorded Patient Health Questionnaire-2 Score 0 12/03/2022 Comments No Sex and Gender Information Value Date Recorded Sex Assigned at Not on file Legal Sex Female 5:45 PM STAGE DIRECTOR Gender Identity Not on file Sexual Orientation Not on file Last Filed Vital Signs Vital Sign Reading Time Taken Comments Blood Pressure 105/64 06/26/2024 2:33 PM CDT Pulse 62 06/26/2024 2:33 PM CDT Temperature 36.8 C (98.3 F) 06/26/2024 2:03 PM CDT Respiratory Rate 16 06/26/2024 2:33 PM CDT Oxygen Saturation 98% 06/26/2024 2:33 PM CDT Inhaled Oxygen Concentration - - Weight 95.3 kg (210 lb 3.2 oz) 06/26/2024 9:14 A M CDT Height 157.5 cm (5' 2) 06/26/2024 9:14 AM CDT Body Mass Index 38.45 06/26/2024 9:14 AM CDT Plan of Treatment Health Maintenance Due Date Last Done Comments COLOGUARD (AGES 45-75) - COLON CA SCREENING 1972 CT COLONOGRAPHY - COLON CA SCREENING 1972 FIT - COLON CA SCREENING 1972 FLEX SIG - COLON CA SCREENING 1972 HIV SCREENING 06/05/1987 HEPATITIS C SCREENING 05/31/1990 DTAP/TDAP/TD VACCINES (1 - Tdap) 06/05/1991 HEPATITIS B VACCINE (1 of 3 - 19+ 3-dose series) 06/05/1991 MAMMOGRAM 03/04/2019 03/04/2017, 06/2016, 02/22/2017, Additional history exists PNEUMOCOCCAL VACCINE 50+ (1 of 1 - PCV) 2022 ZOSTER VACCINE (1 of 2) 2022 COVID-19 VACCINE (1 - season) 2023 DEPRESSION SCREENING 03/22/2024 12/03/2022 INFLUENZA VACCINE (Season Ended) 2024 LIPID TESTING 12/28/2028 12/29/2023, 12/03/2022 COLON MONITORING 07/18/2031 07/17/2021, 04/12/2018 COLONOSCOPY - COLON CA SCREENING 07/18/2031 07/17/2021, 04/12/2018 Colorectal Cancer Screening 07/18/2031 HIB VACCINE Aged Out No longer eligi ble based on patient's age to complete this topic HPV VACCINE Aged Out No longer eligi ble based on patient's age to complete this topic MENINGOCOCCAL (Group B) VACCINE SHARED DECISION-MAKING Aged Out No longer eligible based on patient's age to complete this topic MENINGOCOCCAL GROUPS A/C/Y/W VACCINE Aged Out No longer eligible based on patient's age to complete this topic Medical Devices Implanted Type Area Checker And Packer Device Identifier Shelf Expiration Date Model / Serial / Lot Xpd Tissue [id number] Brst 600ml Sty - [id number] Implanted:Qty: 1 on 04/21/2017 by Redd Ontiveros MD at [facility] Left: Breast [employer] 07/25/2020 133MV-15-T / [id number] / Artia Tissue Matrix 16 X 20 Cm Implanted:Qty: 1 on 04/21/2017 by Redd Ontiveros MD at [facility] Left: Breast 02/18/2019 [id number] / / [id number] Xpd Tissue [id number] Brst 600ml Sty - [id number] Implanted:Qty: 1 on 04/21/2017 by Redd Ontiveros MD at [facility] Right: Breast [employer] 09/08/2018 133MV-15-T / [id number] / Artia Tissue Matrix 16 X 20 Cm Implanted:Qty: 1 on 04/21/2017 by Redd Ontiveros MD at [facility] Right: Breast 02/18/2019 [id number] / / [id number] Impl Brst 800cc Chsv Natrelle [employer] - [id number] Implanted:Qty: 1 on 07/26/2017 by Redd Ontiveros MD at [facility] Right: Breast [employer] 11/23/2021 SCX-800 / [id number] / Impl Brst 800cc Chsv Natrelle [employer] - [id number] Implanted:Qty: 1 on 07/26/2017 by Redd Ontiveros MD at [facility] Right: Breast [employer] 01/27/2022 SCX-800 / [id number] / Ntrelle Inspira Soft Touch Breast Implant Smooth Round Extra Full Profile 800 Cc Implanted:Qty: 1 on 12/08/2017 by Redd Ontiveros MD at [facility] Right: Breast 06/06/2022 SSX-800 / [id number] / Ntrelle [employer] Soft Touch Breast Implant Smooth Round Extra Full Profile 800 Cc Implanted:Qty: 1 on 12/08/2017 by Redd Ontiveros MD at [facility] Left: Breast 09/06/2022 SSX-800 / [id number] / Impl Brst Natrelle [employer] Xfull Prfl - [id number] Implanted:Qty: 1 on 02/07/2024 by Redd Ontiveros MD at [facility] Right: Breast [employer] 04/27/2027 SSX-800 / [id number] / [id number] Impl Brst Natrelle [employer] Xfull Prfl - [id number] Implanted:Qty: 1 on 02/07/2024 by Redd Ontiveros MD at [facility] Left: Breast [employer] 01/11/2026 X-800 / [id number] / [id number] Procedures Procedure Name Priority Date/Time Associated Diagnosis Comments CARDIAC RHYTHM STRIP ORDER 06/27/2024 4:23 PM CDT PATHOLOGY TISSUE EXAM (STL) Routine 06/26/2024 10:41 AM CDT Diagnosis unknown IA SUSPENSION OF BREAST 06/26/2024 9:49 AM CDT Z85.3 Z90.13 N65.0 T85.42XS Special Needs BREAST IMPLANTS,ARE AVAILABLE - IA REVISION MERLINE-IMPLANT CAPSULE BREAST 06/26/2024 9:49 AM CDT Z85.3 Z90.13 N65.0 T85.42XS Special Needs BREAST IMPLANTS,ARE AVAILABLE - IA REVISION OF RECONSTRUCTED BREAST 06/26/2024 9:49 AM CDT Z85.3 Z90.13 N65.0 T85.42XS Special Needs BREAST IMPLANTS,ARE AVAILABLE - LIPID PROFILE Routine 12/03/2022 11:25 AM CDT Mixed hyperlipidemia MAMMOGRAPHY ORDER Routine 02/22/2017 from Last 3 Months or Most Recently Relevant to Health Maintenance Results * CARDIAC RHYTHM STRIP ORDER (06/27/2024 4:23 PM CDT) Narrative 06/27/2024 4:23 PM CDT Ordered by an unspecified provider. us Scanned Document CARDIAC SERVICES ORDERABLES Fin al Result * PATHOLOGY TISSUE EXAM (STL) (06/26/2024 10:41 AM CDT) Case Report Surgical Pathology Report Case: [id number] Authorizing Provider: Redd Ontiveros MD Collected: 06/26/2024 10:41 AM Ordering Location: [facility] [place] Received: 06/26/2024 01:35 PM [facility] Pathologist: Emelia Silveira MD Specimens: A) - Skin, left breast skin B) - Skin, right breast skin C) - Breast Capsule, RIGHT BREAST CAPSULE 06/27/2024 12:17 PM [facility] Final Diagnosis Skin of right breast, excision: Healing surgical site changes Negative for malignancy Skin of right breast, excision: Dermal scar and healing surgical site changes Negative for malignancy Breast capsule, right; partial capsulectomy: Fibrotic capsule with foreign body reaction to refractile silicone globules 06/27/2024 12:17 PM [facility] at 1216 CDT Clinical History POSTOPERATIVE DIAGNOSES: 1. History of breast carcinoma. 2. Acquired absence of bilateral breasts. 3. Deformity of bilateral reconstructed breast with nipple-areolar complex asymmetry and right implant malposition. PROCEDURE: 1. Excision of bilateral chest dog ear (left 2 x 5 cm, right 2 x 5 cm) with intermediate closure (left 6.2 cm, right 6.0 cm). 2. Right inferior capsulorrhaphy and partial capsulectomy with Ascencio pattern mastopexy. 06/27/2024 12:17 PM [facility] Gross Description There are 3 formalin filled specimen containers received. Specimen A labeled l eft breast skin consists of a 5.5 x 1.3 cm ellipse of brown wrinkled skin with up to 2.4 cm of fibrofatty breast tissue. Sectioning reveals areas of dense rubbery fibrous tissue with numerous focal areas of hemorrhage. Copy Chaser sections are submitted in A1 -2. Specimen B labeled r ight breast skin consists of a 5.5 x 1.5 cm ellipse of brown wrinkled skin with up to 2.3 cm of fibrofatty breast tissue. Sectioning reveals less than 10% fibrous tissue with few focal areas of hemorrhage throughout. Copy Chaser sections are submitted in B1-2 Specimen C labeled r ight breast capsule consists of an 8.5 x 4 x 0.3 cm portion of mcdermott glistening fibromembranous tissue consistent with implant capsule and up to 0.4 cm of fibrofatty breast tissue. Sectioning reveals unremarkable yellow-mcdermott adipose tissue throughout. Capsule has smooth, glistening appearance throughout. Copy Chaser sections are submitted in C1. 06/27/2024 12:17 PM [facility] Disclaimer All histochemical and/or immunohistochemical results are interpreted with controls that demonstrate appropriate staining reactions before reporting results. Note on use of immunocytochemistry reagents: This test was developed and its performance characteristic determined by [facility], Department of Laboratory Medicine. It has not been cleared or approved by the U.S. Food and Drug Administration (FDA). The FDA has determined that such clearance or approval is not necessary. The test is used for clinical purpose. It should not be regarded as investigational or for research. This laboratory is certified to perform high complexity testing. The performance characteristics of the IHC/CHRISTA assays have been validated on formalin-fixed paraffin embedded tissues only. The assays have not been validated on decalcified tissues. Results should be interpreted with caution. 06/27/2024 12:17 PM CDT [facility] Embedded Images 06/27/2024 12:17 PM CDT [facility] Pathology/Cytology TISSUE SPECIMEN FROM SKIN / Unknown 06/26/2024 10:41 AM CDT 06/26/2024 1:35 PM CDT Comment:Pre-op diagnosis: Z85.3 Z90.13 N65.0 T85.42XS Miscellaneous samples (specimen) TISSUE SPECIMEN FROM SKIN / Unknown 06/26/2024 10:42 AM CDT 06/26/2024 1:35 PM CDT Comment:Pre-op diagnosis: Z85.3 Z90.13 N65.0 T85.42XS Miscellaneous samples (specimen) CAPSULAR CONTRACTURE OF BREAST / Unknown 06/26/2024 11:29 AM CDT 06/26/2024 1:35 PM CDT Comment:Pre-op diagnosis: Z85.3 Z90.13 N65.0 T85.42XS Redd Ontiveros MD LAB - PATHOLOGY/CYTOLOGY ORDERA BLES Final Result [facility] [address] [id number] * (ABNORMAL) LIPID PROFILE (12/03/2022 11:25 AM CDT) Cholesterol 256(H) <200 mg/dL [facility] ACCOUNT BILL Triglycerides 66 <150 mg/dL [facility] ACCOUNT BILL HDL Cholesterol 76 >40 mg/dL [facility] ACCOUNT BILL VLDL Calculated 13 <=30 mg/dL [facility] ACCOUNT BILL LDL Calculated 167(H) <130 mg/dL [facility] ACCOUNT BILL Comment:FASTING Blood BLOOD SPECIMEN / Unknown 12/03/2022 11:25 AM CDT 12/03/2022 Narrative Resulting Agency Comment Lab Testing performed at: [facility] [address] [facility] [phone] [place] Trudy Evans DO LAB - CHEMISTRY ORDERABLES Final Result [facility] ACCOUNT BILL [address] [place] [address] * MAMMOGRAPHY ORDER (02/22/2017) Anatomical Region Laterality Modality Mammography us Tahira Soto PARTS REMOVER-BULLET LUBRICATING MACHINE OPERATOR MAMMO ORDERABLES Edited R esult - Final from Last 3 Months or Most Recently Relevant to Health Maintenance Insurance [facility] Advance Directives Documents on File Type Date Recorded Patient Copy Chaser Expl anation Adv Directive/Living Will/POA 02/07/2024 Adv Directive/Living Will/POA 11/06/2019 POA for HealthCare N o Blood Care Teams Digital Account Coordinator Relationship Specialty Start Date End Date None, Physician PCP - General 06/26/24
--- OUTSIDE RECORDS SUMMARY | 2024-08-27 10:44 | XMS_ITS | Referral Summary ---
Author Organization [facility] Address [address] [place] [id number] Phone Care Team Providers Care Educational Technician Name Role Phone Radha Cifuentes MD Primary Care Provider [phone] Allergies Active Allergy Reactions Criticality Noted Date Comments Iodine Anaphylaxis High 04/12/2018 Latex Rash,Other (See comments),Urticaria Medium 07/30/2015 Minocycline Rash Medium Shellfish Containing Products Anaphylaxis High 04/12/2018 Sumatriptan Anaphylaxis High 10/15/2022 Medications triamcinolone (KENALOG) 0.1 % creamIndication s:Rash Apply to affected area 1-2 times daily as needed. Avoid face and groin. 30 g 11/25/2022 Active Active Problems Problem Noted Date Diagnosed Date Rash 11/25/2022 Assessment & Plan (11/25/2022 3:43 PM CDT): Possible chigger bites Prednisone taper Kenalog ointment to the affected areas Daily zyrtec 7-10 days Discussed switching to tablet form of acetaminophen ER for fevers, SOB, lip or tongue swelling PCP for persisting symptoms Follow up with PCP for low HR, ER if you develop symptoms of dizziness, CP, SOB, syncope Acute non-recurrent sinusitis 01/14/2022 Assessment & Plan (01/14/2022 1:52 PM CDT): She is to use augmentin twice daily and will use the neti pot daily She is unable to use intranasal steroid Acute otitis media 01/14/2022 Assessment & Plan (01/14/2022 1:53 PM CDT): This is a recurrence She relates this to use of CPAP May need ENT evaluation if this does not resolve with antibiotics Annual physical exam 04/28/2021 Assessment & Plan (04/28/2021 12:15 PM CLAIMS ACCOUNT SPECIALIST): Encourage monthly self breast exams, every 6 mo dental, annual eye exams. Encourage increased vegetable, fruit, decreased salt, saturated fat, processed foods diet with increased physical activity. Labs ordered. Lumbar radiculopathy 03/31/2021 Assessment & Plan (03/31/2021 11:56 AM CLAIMS ACCOUNT SPECIALIST): Rx for medrol dose pack, ibuprofen, flexeril PT referral Encourage ergonomics, heat/ice to area, stretching F/u 4-6 wks Mild obstructive sleep apnea 03/08/2020 Overview (03/08/2020): - HST (02/29/20): AHI was 5.1 with O2 vickie of 86% - DME: [facility] Assessment & Plan (02/06/2022 10:23 AM CLAIMS ACCOUNT SPECIALIST): 1. Chronic, poorly controlled in the setting of not using her machine 2. Discussed using NeilMed sinus rinse to help with nasal congestion and postnasal drip 3. She was start using the machine and message me in 1 month to check efficacy data Assessment & Plan (05/17/2020 1:38 PM CLAIMS ACCOUNT SPECIALIST): 1. Good objective and subjective improvement with her mask 2. She is compliant with its use 3. The settings are good will continue the current settings 4. The only issue is the mask and waking her up at night 5. Will try switching her to the Dreamwisp Assessment & Plan (04/12/2020 10:27 AM CLAIMS ACCOUNT SPECIALIST): 1. Patient is having improved sleep quality and daytime energy 2. However she is having issues with her mask due to it causing her pain on the top of her head 3. Discussed different masks that may resolve this issue 4. Provided her with sample of the F&P Brevida 5. She also has higher residual AHI than desired, believe this will improve with continued use given over half are central in nature 6. Will continue current settings Assessment & Plan (03/08/2020 1:42 PM CLAIMS ACCOUNT SPECIALIST): 1. Reviewed sleep study results 2. Discussed treatment options 3. Patient decided on CPAP therapy 4. Will place order Closed fracture of phalanx of foot 01/18/2019 Gastritis due to Helicobacter species 07/20/2018 Assessment & Plan (07/20/2018 3:07 PM CDT): Treated by GI and has had resolution of her symptoms Burning with urination 04/26/2018 Assessment & Plan (04/26/2018 4:53 PM CLAIMS ACCOUNT SPECIALIST): She c/o pain with urination; will check urinalysis. Abdominal pain 04/21/2018 Overview (04/21/2018): Added automatically from request for surgery [id number] Change in bowel habits 04/04/2018 Overview (04/04/2018): Added automatically from request for surgery [id number] Lymphedema syndrome, postmastectomy 04/01/2018 Assessment & Plan (04/01/2018 12:13 PM CLAIMS ACCOUNT SPECIALIST): Pt is doing recommended daily massage and wearing lymphedema sleeves daily that was recommended by physical therapy Chronic midline back pain 04/01/2018 Assessment & Plan (04/28/2021 12:28 PM CLAIMS ACCOUNT SPECIALIST): Has improved some in last month and had medrol dose pack, flexeril and ibuprofen Upcoming appt with ortho scheduled 05/13 Irritable bowel syndrome wit h both constipation and diarrhea 04/01/2018 Assessment & Plan (04/01/2018 12:13 PM CLAIMS ACCOUNT SPECIALIST): Referral to gastroenterology due to chronic issues Eczema 04/01/2018 Assessment & Plan (04/01/2018 12:15 PM CLAIMS ACCOUNT SPECIALIST): Ordered fluocinonide ointment. Patient has used this in the past and it helped clear eczema. History of left breast cancer 04/01/2018 Assessment & Plan (04/01/2018 12:18 PM CLAIMS ACCOUNT SPECIALIST): Dr. Ontiveros, plastic surgeon is following her with Q5 year MRIs History of bilateral mastectomy 04/01/2018 Assessment & Plan (04/01/2018 12:18 PM CLAIMS ACCOUNT SPECIALIST): Dr. Ontiveros, plastic surgeon is following her with Q5 year MRIs History of reconstruction of both breasts 2018 Assessment & Plan (04/01/2018 12:18 PM CLAIMS ACCOUNT SPECIALIST): Dr. Ontiveros, plastic surgeon is following her with Q5 year MRIs Psychogenic general fatigue 04/01/2018 Assessment & Plan (04/01/2018 12:21 PM CLAIMS ACCOUNT SPECIALIST): Labs ordered today Referral to psychologist Morbid obesity with BMI of 40.0-44.9, adult 03/22 Assessment & Plan (04/28/2021 12:14 PM CLAIMS ACCOUNT SPECIALIST): Encouraged healthy diet and exercise through low sodium, low carbohydrate diet, with exercise. Assessment & Plan (03/31/2021 11:54 AM CLAIMS ACCOUNT SPECIALIST): Encouraged healthy diet and exercise through low sodium, low carbohydrate diet, with exercise. Assessment & Plan (04/12/2020 9:43 AM CLAIMS ACCOUNT SPECIALIST): - Discussed importance of losing weight to improve sleep apnea - Discussed how routine use of a CPAP machine can help with weight loss - Continue to monitor Assessment & Plan (02/23/2020 10:47 AM CLAIMS ACCOUNT SPECIALIST): Encouraged healthy diet and exercise through low sodium, low carbohydrate diet, with exercise. Assessment & Plan (04/01/2018 12:23 PM CLAIMS ACCOUNT SPECIALIST): Recommended mediterranean diet, increasing lean meats, vegetables, fruits, decreasing fast foods and salt intake Recommended increasing water intake to 118 oz daily Recommended not skipping meals Recommended exercise regimen of 30 minutes daily 5 days a week or 2.5-3 hours weekly Encounter for vitamin deficiency screening 04/01 Assessment & Plan (04/01/2018 12:27 PM CLAIMS ACCOUNT SPECIALIST): Vitamin D, B12, CMP, CBC, Iron levels ordered History of colon polyps 04/01/2018 Family history of colon cancer 04/01/2018 Thumb pain, left 04/01/2018 Assessment & Plan (07/20/2018 3:06 PM CDT): Trigger finger has been managed by surgery and she has had recurrent pain after injection. She will follow up with surgery Assessment & Plan (04/26/2018 4:52 PM CLAIMS ACCOUNT SPECIALIST): This has been a chronic ongoing issue; will check x ray; refer to occupational therapy and hand surgery for possible injection. Assessment & Plan (04/01/2018 12:28 PM CLAIMS ACCOUNT SPECIALIST): She describes this as a new pain, will assess at physical Generalized abdominal pain 04/01/2018 Assessment & Plan (04/01/2018 12:29 PM CLAIMS ACCOUNT SPECIALIST): Labs ordered CT scan ordered Colonoscopy ordered Breast cancer 06/15/2017 Overview (06/15/2017): Full bilateral mastectomy, No residual, no chemo meds Social History Tobacco Use Types Packs/Day Years Used Date Smoking Tobacco: Never Smokeless Tobacco: Never Tobacco Cessation:Counseling Given: Not Answered Alcohol Use Standard Drinks/Week Comments Yes 0 (1 standard drink = 0.6 oz pur e alcohol) AUDIT-C Answer Date Recorded Q1: How often do you have a drink containing alc ohol? 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 Not on file Not on file Last Filed Vital Signs Vital Sign Reading Time Taken Comments Blood Pressure 120/64 11/25/2022 3:01 PM CDT Pulse 51 11/25/2022 3:01 PM CDT Temperature 36.3 C (97.4 F) 11/25/2022 3:01 PM CDT Respiratory Rate 18 11/25/2022 3:01 PM CDT Oxygen Saturation 98% 11/25/2022 3:01 PM CDT Inhaled Oxygen Concentration - - Weight 96.6 kg (213 lb) 11/25/2022 3:01 PM CDT Height 157.5 cm (5' 2) 11/25/2022 3:01 PM CDT Body Mass Index 38.96 11/25/2022 3:01 PM CDT Plan of Treatment Scheduled Procedures Name Priority Associated Diagnoses Date/Ti me COLONOSCOPY Screening for colon cancer COLONOSCOPY Screening for colon cancer Procedures Procedure Name Priority Date/Time Associated Diagnosis Comments COLONOSCOPY 07/17/2021 2:53 PM CDT SCREENING MAMMOGRAM Routine 03/04/2017 3 :19 PM CLAIMS ACCOUNT SPECIALIST SERUM HEPATITIS C AB Routine 02/03/2016 11:52 AM CLAIMS ACCOUNT SPECIALIST from Last 3 Months or Most Recently Relevant to Health Maintenance Results * COLONOSCOPY (07/17/2021 2:53 PM CDT) Anatomical Region Laterality Modality Other Narrative Procedure Note Emelia Conroy MD - 07/17/2021 2:53 PM CDT [facility] Patient Name: Slime Miller Procedure Date: 07/17/2021 2:53 PM Date of : 1970 Admit Type: Outpatient Age: 51 Gender: Female Attending MD: Emelia Conroy M.D. Room: [facility] ENDOSCOPY ROOM 3 Note Status: Finalized Procedure: Colonoscopy Indications: High risk colon cancer surveillance: Personalhistory of adenoma > 1 cm with villous component (high risk adenoma), Last colonoscopy: March 2018 Referring MD: Margoth Duke F.N.PJason Providers: Emelia Conroy M.D. Medicines: Monitored Anesthesia Care Complications: No immediate complications. Estimated Blood Loss: Estimated blood loss was minimal. Procedure: Pre-Anesthesia Assessment: - Prior to the procedure, a History and Physicalwas performed, and patient medications, allergies and sensitivities were reviewed. The patient'stolerance of previous anesthesia was reviewed. - Immediately prior to administration ofmedications, the patient was re-assessed for adequacy to receive sedatives. - The risks and benefits of the procedure and the sedation options and risks were discussed with the patient. All questions were answered and informed consent was obtained. The benefits, risks and alternatives of theprocedure and sedation were discussed and informed consentwas obtained. All questions were answered. Please referto the signed informed consent document in the medical record. The scope was passed under direct vision.The [facility] [id number] endoscope was introducedthrough the anus and advanced to the terminal ileum, with identification of the appendiceal orifice and IC valve. The colonoscopy was performed without difficulty. The patient tolerated the procedurewell. The quality of the bowel preparation was evaluated using the BBPS (Hellier Bowel Preparation Scale)with scores of: Right Colon = 3, Transverse Colon = 3and Left Colon = 3 (entire mucosa seen well with no residual staining, small fragments of stool oropaque liquid). The total BBPS score equals 9. The bowel preparation used was GoLYTELY via split dose instruction. The quality of the bowel preparationwas excellent. Findings: The perianal and digital rectal examinations were normal. The terminal ileum appeared normal. A 2 mm polyp was found in the cecum. The polyp was sessile. The polyp was removed with a cold biopsy forceps. Resection and retrieval were complete. A few diverticula were found in the sigmoid colon. A tattoo was seen in the sigmoid colon. The tattoo site appearednormal. Hemorrhoids were found during retroflexion. Impression: - The examined portion of the ileum was normal. - One 2 mm polyp in the cecum, removed with a cold biopsy forceps. Resected and retrieved. - Diverticulosis in the sigmoid colon. - A tattoo was seen in the sigmoid colon. Thetattoo site appeared normal. - Hemorrhoids. Recommendation: - The patient will be observed post-procedure,until all discharge criteria are met. - Await pathology results. - Repeat colonoscopy in 5 years for surveillance. - Biopsy results are typically available within 7-10 days and you will be contacted with the results. If you have not recieved your results within this timeframe, please call [phone] regarding your results. - Contact Information: During normal business hours - Please call theNurse Coordinator: [phone] After hours, evening, nights, weekends and holidays- Please call the hospital gas burner operator at and ask for the GI fellow population geneticist. Attending Participation: I personally performed the entire procedure. Electronically Signed By: Emelia Conroy M.D. Emelia Conroy M.D. 07/17/2021 3:19:01 PM . Number of Addenda: 0 Note Initiated On: 07/17/2021 2:53 PM Recognized by the [place] for promoting quality in endoscopy Emelia Conroy MD ENDOSCOPY PROCEDURES Fin al Result * Screening Mammogram (03/04/2017 3:19 PM CLAIMS ACCOUNT SPECIALIST) Anatomical Region Laterality Modality Breast N/A Mammography 03/04/2017 3:19 PM CLAIMS ACCOUNT SPECIALIST Narrative 03/04/2017 3:27 PM CLAIMS ACCOUNT SPECIALIST DENISE RODRÍGUEZ M.D. FINAL REPORT ACC# Date Time Exam [id number] Mar 04, 2017 09:19:00 [facility] [id number] Procedure Mammo, unilat L Technologist(s): Kristen Interiano; ; [id number] Mar 04, 2017 09:01:00 [facility] [id number] Breast Bx Incl Loc Stereo L EXAMINATION: ORIGINAL REPORT LEFT BREAST VACUUM-ASSISTED CORE BIOPSY UTILIZING STEREOTACTIC GUIDANCE, ONE LESION/SITE; PLACEMENT OF A BIOPSY TISSUE MARKER CLIP; AND LEFT FULL FIELD DIGITAL POST-PROCEDURE MAMMOGRAM HISTORY: Abnormal mammogram. 46-year-old woman with screen detected pleomorphic and fine linear calcifications in a segmental distribution in the left breast, 3 o'clock position, spanning 5.1 cm. Stereotactic guided core needle biopsy is requested to evaluate for malignancy. COMPARISON: 02/22/2017, 02/05/2017 and 02/03/2016 PROCEDURE AND FINDINGS: The risks and potential benefits of the procedures were discussed with the patient and written informed consent was obtained. The patient was placed in the prone position on the stereotactic table with the LEFT breast in mediolateral compression and the area of interest was localized and targeted utilizing digital imaging with stereotaxis. The more anterior pleomorphic calcifications were targeted for biopsy. After sterile preparation of the skin, 1% lidocaine was utilized for local anesthesia at the skin puncture site and 2% lidocaine with epinephrine was utilized for deeper local anesthesia/hemostasis about the biopsy site. A small skin incision was made with a #11 scalpel blade. A 9 gauge Vidyard vacuum-assisted biopsy needle was then advanced through the skin incision to the level of the calcifications of interest in the lateral left breast from a lateral approach utilizing stereotactic guidance and a total of 6 tissue cores were obtained. Specimen radiograph showed calcifications within the sample. [A ModiFace Mini Cork tissue marker clip was then placed at the biopsy site. The needle was removed and hemostasis was achieved. A sterile bandage and an ice pack were applied. The tissue cores were submitted to surgical pathology in formalin for histologic analysis. The patient tolerated the procedure well and without evidence of significant immediate complication. The patient was given verbal as well as written post procedural instructions prior to release from the department. A two-view LEFT digital mammogram obtained post procedure demonstrates that the tissue marker clip is in the expected position. There is a small hematoma at the biopsy site. The attending radiologist, Dr. Denise Rodríguez, was present throughout the entire procedure. Dr. Leon (diagnostic international affairs vice president) also participated in this examination. IMPRESSION: Successful vacuum-assisted core needle biopsy of the LEFT breast utilizing stereotactic guidance. Pathology is pending. Electronically signed by: Denise Rodríguez M.D. ADDENDUM #1 Addendum #1 by CORBY Friedman [facility]- for Dr. 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 Calcifications associated with DCIS were identified. There was no definitive evidence of invasive carcinoma. These findings were reviewed by Drs. Denise Rodríguez and Angie Langston. This is a malignant finding and requires surgical intervention. The patient was notified of the biopsy results and recommendations by CORBY Friedman [facility] of the [facility] on 03/08/17, and is scheduled to see Dr. Karuna Blount for surgical consultation on 03/23/17. NOTE: 1. Breast MRI is recommended. 2. If breast conservation therapy is desired, bracketed wire localization utilizing two wires is recommended. Edited by: Regla Snell Electronically signed by: Denise Rodríguez M.D. Requested By: Tahira Chavez Dictated By: TISH LEON M.D. on Mar 04 2017 9:20A This document has been electronically signed by: DENISE RODRÍGUEZ M.D. on Mar 04 2017 9:25A on Mar 18 2017 8:30A This Addendum has been electronically signed by: DENISE RODRÍGUEZ M.D. on Mar 18 2017 8:27A [id number] RODRÍGUEZ M.D. FINAL REPORT Attending: TAHIRA CHAVEZ Requesting: Tahira Chavez Requesting Fax: Attending Fax: Attending ID: [id number] Requesting ID: [id number] Report To 1 ID: [id number] Report To 1 Name: , Report To 1 FAX: NextGen Order #: Procedure Note Miscellaneous, Not In File - 03/18/2017 DENISE RODRÍGUEZ M.D. FINAL REPORT ACC# Date Time Exam [id number] Mar 04, 2017 09:19:00 [facility] [id number] Procedure Mammo, unilat L Technologist(s): Kristen Interiano; ; [id number] Mar 04, 2017 09:01:00 [facility] [id number] Breast Bx Incl Loc Stereo L EXAMINATION: ORIGINAL REPORT LEFT BREAST VACUUM-ASSISTED CORE BIOPSY UTILIZING STEREOTACTIC GUIDANCE, ONE LESION/SITE; PLACEMENT OF A BIOPSY TISSUE MARKER CLIP; AND LEFT FULL FIELD DIGITAL POST-PROCEDURE MAMMOGRAM HISTORY: Abnormal mammogram. 46-year-old woman with screen detected pleomorphic and fine linear calcifications in a segmental distribution in the left breast, 3 o'clock position, spanning 5.1 cm. Stereotactic guided core needle biopsy is requested to evaluate for malignancy. COMPARISON: 02/22/2017, 02/05/2017 and 02/03/2016 PROCEDURE AND FINDINGS: The risks and potential benefits of the procedures were discussed with the patient and written informed consent was obtained. The patient was placed in the prone position on the stereotactic table with the LEFT breast in mediolateral compression and the area of interest was localized and targeted utilizing digital imaging with stereotaxis. The more anterior pleomorphic calcifications were targeted for biopsy. After sterile preparation of the skin, 1% lidocaine was utilized for local anesthesia at the skin puncture site and 2% lidocaine with epinephrine was utilized for deeper local anesthesia/hemostasis about the biopsy site. A small skin incision was made with a #11 scalpel blade. A 9 gauge Vidyard vacuum-assisted biopsy needle was then advanced through the skin incision to the level of the calcifications of interest in the lateral left breast from a lateral approach utilizing stereotactic guidance and a total of 6 tissue cores were obtained. Specimen radiograph showed calcifications within the sample. [A ModiFace Mini Cork tissue marker clip was then placed at the biopsy site. The needle was removed and hemostasis was achieved. A sterile bandage and an ice pack were applied. The tissue cores were submitted to surgical pathology in formalin for histologic analysis. The patient tolerated the procedure well and without evidence of significant immediate complication. The patient was given verbal as well as written post procedural instructions prior to release from the department. A two-view LEFT digital mammogram obtained post procedure demonstrates that the tissue marker clip is in the expected position. There is a small hematoma at the biopsy site. The attending radiologist, Dr. Denise Rodríguez, was present throughout the entire procedure. Dr. Leon (diagnostic international affairs vice president) also participated in this examination. IMPRESSION: Successful vacuum-assisted core needle biopsy of the LEFT breast utilizing stereotactic guidance. Pathology is pending. Electronically signed by: Denise Rodríguez M.D. ADDENDUM #1 Addendum #1 by CORBY Friedman [facility]- for Dr. 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 Calcifications associated with DCIS were identified. There was no definitive evidence of invasive carcinoma. These findings were reviewed by Drs. Denise Rodríguez and Angie Langston. This is a malignant finding and requires surgical intervention. The patient was notified of the biopsy results and recommendations by CORBY Friedman [facility] of the [facility] on 03/08/17, and is scheduled to see Dr. Karuna Blount for surgical consultation on 03/23/17. NOTE: 1. Breast MRI is recommended. 2. If breast conservation therapy is desired, bracketed wire localization utilizing two wires is recommended. Edited by: Regla Snell Electronically signed by: Denise Rodríguez M.D. Requested By: Tahira Chavez Dictated By: TISH LEON M.D. on Mar 04 2017 9:20A This document has been electronically signed by: DENISE RODRÍGUEZ M.D. on Mar 04 2017 9:25A on Mar 18 2017 8:30A This Addendum has been electronically signed by: DENISE RODRÍGUEZ M.D. on Mar 18 2017 8:27A [id number] RODRÍGUEZ M.D. FINAL REPORT Attending: TAHIRA CHAVEZ Requesting: Tahira Chavez Requesting Fax: Attending Fax: Attending ID: [id number] Requesting ID: [id number] Report To 1 ID: [id number] Report To 1 Name: , Report To 1 FAX: NextGen Order #: Tahira Chavez TABLE GAMES DUAL RATE SUPERVISOR IMG MAMMO PROCEDURES Edited Result - Final * Serum Hepatitis C ab (02/03/2016 11:52 AM CLAIMS ACCOUNT SPECIALIST) HCV ab Negative NEG CDR HISTOR ICAL RESULTS Serum 02/03/2016 11:5 2 AM CLAIMS ACCOUNT SPECIALIST us Tahira Chavez TABLE GAMES DUAL RATE SUPERVISOR LAB BLOOD ORDERABLES Final R esult CDR HISTORICAL RESULTS from Last 3 Months or Most Recently Relevant to Health Maintenance [place] Advance Directives For more information, please contact: [phone] Documents on File Type Date Recorded Patient [employer] Technicians Expl anation ADVANCE DIRECTIVE 07/19/2021 6:50 AM POWER OF RECEIVING AND PROCESSING SUPERVISOR-MEDICAL * Full Code (Latest Code Status on File) Date Activated Date Inactivated Comments 07/17/2021 2:04 PM 07/17/2021 8:20 PM * Full Code Date Activated Date Inactivated Comments 05/10/2018 10:44 AM 05/10/2018 5:56 PM * Full Code Date Activated Date Inactivated Comments 04/12/2018 10:34 AM 04/12/2018 6:11 PM Care Teams Educational Technician Relationship Specialty Start Date End Date Radha Cifuentes MD [address] [place] [address] DR [place] [address] [address] PCP - General Internal Medicine 04/01/18
--- OUTSIDE RECORDS SUMMARY | 2024-08-27 10:44 | XMS_ITS ---
Author Organization [facility] Address [address] [facility] [address] [place] [phone] Phone Care Team Providers Care Customs Compliance Analyst Name Role Phone Radha Cifuentes MD Primary Care Provider [phone] Active Problems Problem Noted Date Diagnosed Date [...] 04/28/2021 Assessment & Plan (04/28/2021 12:15 PM TUBE WINDER): Encourage monthly self breast exams, every 6 mo dental, annual eye exams. Encourage increased vegetable, fruit, decreased salt, saturated fat, processed foods diet with increased physical activity. Labs ordered. Lumbar radiculopathy 03/31/2021 Assessment & Plan (03/31/2021 11:56 AM TUBE WINDER): Rx for medrol dose pack, ibuprofen, flexeril PT referral Encourage ergonomics, heat/ice to area, stretching F/u 4-6 wks Mild obstructive sleep apnea 03/08/2020 Overview (03/08/2020): - HST (02/29/20): AHI was 5.1 with O2 vickie of 86% - DME: [facility] Assessment & Plan (02/06/2022 10:23 AM TUBE WINDER): 1. Chronic, poorly controlled in the setting of not using her machine 2. Discussed using NeilMed sinus rinse to help with nasal congestion and postnasal drip 3. She was start using the machine and message me in 1 month to check efficacy data Assessment & Plan (05/17/2020 1:38 PM TUBE WINDER): 1. Good objective and subjective improvement with her mask 2. She is compliant with its use 3. The settings are good will continue the current settings 4. The only issue is the mask and waking her up at night 5. Will try switching her to the Dreamwisp Assessment & Plan (04/12/2020 10:27 AM TUBE WINDER): 1. Patient is having improved sleep quality [...] settings Assessment & Plan (03/08/2020 1:42 PM TUBE WINDER): 1. Reviewed sleep study results 2. Discussed treatment options 3. Patient decided on CPAP therapy 4. Will place order Closed fracture of phalanx of foot 01/18/2019 Gastritis due to Helicobacter species 07/20/2018 Assessment & Plan (07/20/2018 3:07 PM CDT): Treated by GI and has had resolution of her symptoms Burning with urination 04/26/2018 Assessment & Plan (04/26/2018 4:53 PM TUBE WINDER): She c/o pain with urination; will check urinalysis. Abdominal pain 04/21/2018 Overview (04/21/2018): Added automatically from request for surgery [id number] Change in bowel habits 04/04/2018 Overview (04/04/2018): Added automatically from request for surgery [id number] Lymphedema syndrome, postmastectomy 04/01/2018 Assessment & Plan (04/01/2018 12:13 PM TUBE WINDER): Pt is doing recommended daily massage and wearing lymphedema sleeves daily that was recommended by physical therapy Chronic midline back pain 04/01/2018 Assessment & Plan (04/28/2021 12:28 PM TUBE WINDER): Has improved some in last month and had medrol dose pack, flexeril and ibuprofen Upcoming appt with ortho scheduled 05/13 Irritable bowel syndrome wit h both constipation and diarrhea 04/01/2018 Assessment & Plan (04/01/2018 12:13 PM TUBE WINDER): Referral to gastroenterology due to chronic issues Eczema 04/01/2018 Assessment & Plan (04/01/2018 12:15 PM TUBE WINDER): Ordered fluocinonide ointment. Patient has used this in the past and it helped clear eczema. History of left breast cancer 04/01/2018 Assessment & Plan (04/01/2018 12:18 PM TUBE WINDER): Dr. Ontiveros, plastic surgeon is following her with Q5 year MRIs History of bilateral mastectomy 04/01/2018 Assessment & Plan (04/01/2018 12:18 PM TUBE WINDER): Dr. Ontiveros, plastic surgeon is following her with Q5 year MRIs History of reconstruction of both breasts 2018 Assessment & Plan (04/01/2018 12:18 PM TUBE WINDER): Dr. Ontiveros, plastic surgeon is following her with Q5 year MRIs Psychogenic general fatigue 04/01/2018 Assessment & Plan (04/01/2018 12:21 PM TUBE WINDER): Labs ordered today Referral to psychologist Morbid obesity with BMI of 40.0-44.9, adult 03/22 Assessment & Plan (04/28/2021 12:14 PM TUBE WINDER): Encouraged healthy diet and exercise through low sodium, low carbohydrate diet, with exercise. Assessment & Plan (03/31/2021 11:54 AM TUBE WINDER): Encouraged healthy diet and exercise through low sodium, low carbohydrate diet, with exercise. Assessment & Plan (04/12/2020 9:43 AM TUBE WINDER): - Discussed importance of losing weight to improve sleep apnea - Discussed how routine use of a CPAP machine can help with weight loss - Continue to monitor Assessment & Plan (02/23/2020 10:47 AM TUBE WINDER): Encouraged healthy diet and exercise through low sodium, low carbohydrate diet, with exercise. Assessment & Plan (04/01/2018 12:23 PM TUBE WINDER): Recommended mediterranean diet, increasing lean meats, vegetables, fruits, decreasing fast foods and salt intake Recommended increasing water intake to 118 oz daily Recommended not skipping meals Recommended exercise regimen of 30 minutes daily 5 days a week or 2.5-3 hours weekly Encounter for vitamin deficiency screening 04/01 Assessment & Plan (04/01/2018 12:27 PM TUBE WINDER): Vitamin D, B12, CMP, CBC, Iron levels ordered History of colon polyps 04/01/2018 Family history of colon cancer 04/01/2018 Thumb pain, left 04/01/2018 Assessment & Plan (07/20/2018 3:06 PM CDT): Trigger finger has been managed by surgery and she has had recurrent pain after injection. She will follow up with surgery Assessment & Plan (04/26/2018 4:52 PM TUBE WINDER): This has been a chronic ongoing issue; will check x ray; refer to occupational therapy and hand surgery for possible injection. Assessment & Plan (04/01/2018 12:28 PM TUBE WINDER): She describes this as a new pain, will assess at physical Generalized abdominal pain 04/01/2018 Assessment & Plan (04/01/2018 12:29 PM TUBE WINDER): Labs ordered CT scan ordered Colonoscopy ordered Breast cancer 06/15/2017 Overview (06/15/2017): Full bilateral mastectomy, No residual, no chemo meds Current Treatment and Therapy Plans No current plan information found. Past Treatment and Therapy Plans No past plan information found. Lifetime Dose Tracking * Chemical Lifetime Dose Automatic Entry Manual Entr y DLP 1,057 mGycm 1,057 mGycm 0 mGycm
--- OUTSIDE RECORDS SUMMARY | 2024-08-27 10:44 | XMS_ITS | Continuity of Care Document ---
Author Organization [facility] Address [address] [facility] [place] [address] Phone Care Team Providers Care Fancy Wire Drawer Name Role Phone Collin Varela MD Unavailable Unavailable Advance Directives Directive Yes / No Effective Date File Name No Information Encounters Encounter Description Practice Location Reason(s) For Visit Diagnoses Date Provider Providers Copied on Encounter [facility], [address] [place], [id number], [place] tel:[phone] [facility] No Information [facility]. [address] [place], [place], [id number], [place]. tel:[phone] Family History Family Member Type Diagnosis Age At Onset No Information Payers Payer name Insurance type Covered republican ID Authoriza tion(s) No Information Social History Type Description Quantity Date Captured Comments Sex Female Smoking Status No Information Chief Complaint And Reason For Visit No Information Plan Of Treatment Date Type Action Status No Information History Of Present Illness Encounter Date Complaint History Of Prese nt Illness No Information Instructions Date Instruction Additional Infor mation No Information Assessments Type Assessment Date No Information
--- OUTSIDE RECORDS SUMMARY | 2024-08-27 10:44 | XMS_ITS | Continuity of Care Document ---
Author Organization [facility] Address [address] [place] [address] Phone Care Team Providers Care Drafting Engineer Name Role Phone Collin Varela MD Unavailable Unavailable Allergies, Adverse Reactions, Alerts Substance Reaction Status Criticality AMITRAZ Anaphylaxis Active No Information ESTROGENS,ESTERIFIED Hives / Skin Rash Active No Information IODINE DizzinessLightheadedness Active No Information Medications Medication Instructions Dosage Effective Dates (start - stop) Status Comments spironolactone 100 mg tablet take 1 tablet by oral route every day 100 MG - Active Procedures Procedure Date PREV VISIT, [facility], AGE 40-64 OFFICE/OUTPATIENT VISIT, [facility] Advance Directives Directive Yes / No Effective Date File Name No Information Encounters Encounter Description Practice Location Reason(s) For Visit Diagnoses Date Provider Providers Copied on Encounter PREV VISIT, [facility], AGE 40-64 [facility], [address] [place], [id number], [place] tel:[phone] [facility] physical (chief complaint) Obstructive sleep apnea hypopneaAbnormal weight gainAcneEncounter for general adult medical exam w abnormal findings [address] [place], [id number] , [place]. tel:[phone] Family History Family Member Type Diagnosis Age At Onset Sister Problem Hypertension Mother Problem Hypertension Father Problem Diabetes mellitus Father Problem Renal disease Father Problem Stroke 51 Payers Payer name Insurance type Covered libertarian ID Authoriza tiyessy(s) [facility] CI [id number] Social History Type Description Quantity Date Captured Comments Alcohol Use Details Caffeine Use Details Unknown Tobacco Use Status Current non-smoker Smoking Status Never smoker Non-Smoking Tobacco Use Details : No Details Available : No Details Available Sex Female Vital Signs Date / Time: Height Weight BMI Pulse Rate Blood Pressure Temperature Respiratory Rate Body Surface Area Head Circumference BMI percentile Pulse Ox Inhaled Ox 5:26 PM 62.75 in 204.00 lbs 36.4 3 kg/m eter (2) 64 /min 116/72 mm[Hg] 97.2 F 16 /min Chief Complaint And Reason For Visit From encounter dated '04/11/2024 17:20'. physical (chief complaint). Description: Pt needs annual physical Pt takes tirzepatide for weight loss but she does not remember the dose. Pt has been losing weight with tirzepatide. Pt tolerating itok Pt has sleep apnea and she uses cpap nightly. Pt has mild sleep apnea Pt is interested to try touse zepbound for indication of sleep apnea. Pt also takes spironolactone for acne which works well.Pt denies any other complaints Plan Of Treatment Date Type Action Status Referral Ordered: SLEEP STUDY, ATTENDED ordered History Of Present Illness Encounter Date Complaint History Of Prese nt Illness physical Pt needs annual physical Pt takes tirzepatide for weight loss but she does not remember the dose. Pt has been losing weight with tirzepatide. Pt tolerating it ok Pt has sleep apnea and she uses cpap nightly. Pt has mild sleep apnea Pt is interested to try to use zepbound for indication of sleep apnea. Pt also takes spironolactone for acne which works well. Pt denies any other complaints Instructions Date Instruction Additional Infor mation No Information Assessments Type Assessment Date assessment Obstructive sleep apnea hypopnea assessment Abnormal weight gain assessment Acne assessment Encounter for general adult medi theodore exam w abnormal findings Mental Status Date Cognitive Assessment Orientation - Roy ed to time, place, person, situation.
--- OUTSIDE RECORDS SUMMARY | 2024-08-27 10:44 | XMS_ITS | Clinical Summary ---
Author Organization [facility] Address [address] [place] [id number] Phone Care Team Providers Care Telecommunications Cable Jointer Name Role Phone Radha Cifuentes MD Primary Care Provider [phone] Allergies Active Allergy Reactions Criticality Noted Date [...] 04/28/2021 Assessment & Plan (04/28/2021 12:15 PM [employer]): Encourage monthly self breast exams, every 6 mo dental, annual eye exams. Encourage increased vegetable, fruit, decreased salt, saturated fat, processed foods diet with increased physical activity. Labs ordered. Lumbar radiculopathy 03/31/2021 Assessment & Plan (03/31/2021 11:56 AM [employer]): Rx for medrol dose pack, ibuprofen, flexeril PT referral Encourage ergonomics, heat/ice to area, stretching F/u 4-6 wks Mild obstructive sleep apnea 03/08/2020 Overview (03/08/2020): - HST (02/29/20): AHI was 5.1 with O2 vickie of 86% - DME: [facility] Assessment & Plan (02/06/2022 10:23 AM [employer]): 1. Chronic, poorly controlled in the setting of not using her machine 2. Discussed using NeilMed sinus rinse to help with nasal congestion and postnasal drip 3. She was start using the machine and message me in 1 month to check efficacy data Assessment & Plan (05/17/2020 1:38 PM [employer]): 1. Good objective and subjective improvement with her mask 2. She is compliant with its use 3. The settings are good will continue the current settings 4. The only issue is the mask and waking her up at night 5. Will try switching her to the Dreamwisp Assessment & Plan (04/12/2020 10:27 AM [employer]): 1. Patient is having improved sleep quality [...] settings Assessment & Plan (03/08/2020 1:42 PM [employer]): 1. Reviewed sleep study results 2. Discussed treatment options 3. Patient decided on CPAP therapy 4. Will place order Closed fracture of phalanx of foot 01/18/2019 Gastritis due to Helicobacter species 07/20/2018 Assessment & Plan (07/20/2018 3:07 PM CDT): Treated by GI and has had resolution of her symptoms Burning with urination 04/26/2018 Assessment & Plan (04/26/2018 4:53 PM [employer]): She c/o pain with urination; will check urinalysis. Abdominal pain 04/21/2018 Overview (04/21/2018): Added automatically from request for surgery [id number] Change in bowel habits 04/04/2018 Overview (04/04/2018): Added automatically from request for surgery [id number] Lymphedema syndrome, postmastectomy 04/01/2018 Assessment & Plan (04/01/2018 12:13 PM [employer]): Pt is doing recommended daily massage and wearing lymphedema sleeves daily that was recommended by physical therapy Chronic midline back pain 04/01/2018 Assessment & Plan (04/28/2021 12:28 PM [employer]): Has improved some in last month and had medrol dose pack, flexeril and ibuprofen Upcoming appt with ortho scheduled 05/13 Irritable bowel syndrome wit h both constipation and diarrhea 04/01/2018 Assessment & Plan (04/01/2018 12:13 PM [employer]): Referral to gastroenterology due to chronic issues Eczema 04/01/2018 Assessment & Plan (04/01/2018 12:15 PM [employer]): Ordered fluocinonide ointment. Patient has used this in the past and it helped clear eczema. History of left breast cancer 04/01/2018 Assessment & Plan (04/01/2018 12:18 PM INS[employer]): Dr. Ontiveros, plastic surgeon is following her with Q5 year MRIs History of bilateral mastectomy 04/01/2018 Assessment & Plan (04/01/2018 12:18 PM INS[employer]ERTY): Dr. Ontiveros, plastic surgeon is following her with Q5 year MRIs History of reconstruction of both breasts 2018 Assessment & Plan (04/01/2018 12:18 PM INS[employer]ERTY): Dr. Ontiveros, plastic surgeon is following her with Q5 year MRIs Psychogenic general fatigue 04/01/2018 Assessment & Plan (04/01/2018 12:21 PM [employer]): Labs ordered today Referral to psychologist Morbid obesity with BMI of 40.0-44.9, adult 03/22 Assessment & Plan (04/28/2021 12:14 PM [employer]): Encouraged healthy diet and exercise through low sodium, low carbohydrate diet, with exercise. Assessment & Plan (03/31/2021 11:54 AM [employer]): Encouraged healthy diet and exercise through low sodium, low carbohydrate diet, with exercise. Assessment & Plan (04/12/2020 9:43 AM [employer]): - Discussed importance of losing weight to improve sleep apnea - Discussed how routine use of a CPAP machine can help with weight loss - Continue to monitor Assessment & Plan (02/23/2020 10:47 AM [employer]): Encouraged healthy diet and exercise through low sodium, low carbohydrate diet, with exercise. Assessment & Plan (04/01/2018 12:23 PM [employer]): Recommended mediterranean diet, increasing lean meats, vegetables, fruits, decreasing fast foods and salt intake Recommended increasing water intake to 118 oz daily Recommended not skipping meals Recommended exercise regimen of 30 minutes daily 5 days a week or 2.5-3 hours weekly Encounter for vitamin deficiency screening 04/01 Assessment & Plan (04/01/2018 12:27 PM [employer]): Vitamin D, B12, CMP, CBC, Iron levels ordered History of colon polyps 04/01/2018 Family history of colon cancer 04/01/2018 Thumb pain, left 04/01/2018 Assessment & Plan (07/20/2018 3:06 PM CDT): Trigger finger has been managed by surgery and she has had recurrent pain after injection. She will follow up with surgery Assessment & Plan (04/26/2018 4:52 PM [employer]): This has been a chronic ongoing issue; will check x ray; refer to occupational therapy and hand surgery for possible injection. Assessment & Plan (04/01/2018 12:28 PM [employer]): She describes this as a new pain, will assess at physical Generalized abdominal pain 04/01/2018 Assessment & Plan (04/01/2018 12:29 PM [employer]): Labs ordered CT scan ordered Colonoscopy ordered Breast cancer 06/15/2017 Overview (06/15/2017): Full bilateral mastectomy, No residual, no chemo meds Surgical History Surgery Date Site/Laterality Comments MASTECTOMY 03/22/2017 - 04/21/2017 Bilateral w/reconstruction HYSTERECTOMY W/ BILATERAL SALPINGOOPHORECTOMY 03/22/1996 - 03/21/1997 HYSTERECTOMY 03/22/1996 - 03/21/1997 dr. baires CARPAL TUNNEL RELEASE 02/12/2020 Right [facility]-Dr Redd Ontiveros BREAST SURGERY 03/2017 Medical History Medical History Date Comments Breast cancer, left (HCC) 2016 Migraines Lymphedema of both upper extremities Anxiety Allergic rhinitis Obesity GERD (gastroesophageal reflux disease) IBS (irritable bowel syndrome) Diverticulitis Anemia Sleep apnea 2018 Family History Medical History Relation Name Comments Breast cancer Father Agus Cancer, breast ; Cancer Father Agus Family history of malignant neoplasm - (Added by TW Conv) Clotting disorder Father Agus Diabetes Father Agus Diabetes mellit us; /Family history of diabetes mellitus - (Added by TW Conv) Kidney disease Father Agus Seizures Father Agus Stroke Father Agus Stroke; Cancer Father's Brother Fili Cancer Father's Sister 1 Dalila Cancer Father's Sister 2 Flores Cancer Father's Sister 3 Yari Arthritis Mother Rosaline Hearing loss Mother Rosaline Hypertension Mother Rosaline Hypertension; Rashes / Skin problems Mother Rosaline Breast cancer Other Family history of Cancer, breast; Relation Name Status Comments Father Agus Alive Father's Brother Fili Father's Sister 1 Dalila Father's Sister 2 Flores Father's Sister 3 Yari Mother Rosaline Alive Other Social History Tobacco Use Types Packs/Day Years [...] on file Legal Sex Female 11:58 AM [employer] Gender Identity Female 11/24/2022 4:34 PM CDT Sexual Orientation Straight 11/24/2022 4: 34 PM CDT 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 Not on file Not on file Obstetrics History Para Term AB IAB SAB Ectopic Multiple Livin g Live Births 0 0 0 0 0 0 0 0 0 0 0 Last Filed Vital Signs Vital Sign Reading [...] colon cancer COLONOSCOPY Screening for colon cancer Health Maintenance Due Date Last Done Comments DTaP/Tdap/Td Vaccine (1 - Tdap) 06/05/1983 Hepatitis B Screening 1990 Breast Cancer Screening-Mammogram 03/04/2018 03/04/2017, 02/22/2017, 02/05/2017, Additional history exists Regular Well Visit/Exam 18-64 04/28/2022 04/28/2021, 02/23/2020, 05/02/2018, Additional history exists Zoster Vaccine (1 of 2) 2022 Depression Screening 01/14/2023 01/14/2022, 11/18/2021, 04/28/2021, Additional history exists Covid-19 Vaccine ( season) 2023 03/27/2021, 10/09/2020, 09/11/2020 Colon Cancer Screening-Colonoscopy 07/18/2031 07/17/2021, 04/12/2018 Hepatitis C Screening Completed 02/03/2016 Influenza Vaccine Discontinued Pneumococcal vaccine <65 Aged Out No longer eligible based on patient's age to complete this topic Procedures Procedure Name Priority Date/Time Associated Diagnosis Comments COLONOSCOPY 07/17/2021 2:53 PM CDT SCREENING MAMMOGRAM Routine 03/04/2017 3 :19 PM [employer] SERUM HEPATITIS C AB Routine 02/03/2016 11:52 AM [employer] from Last 3 Months or Most Recently Relevant to Health Maintenance Results * COLONOSCOPY (07/17/2021 2:53 PM CDT) Anatomical Region Laterality Modality Other Narrative Procedure Note Emelia Conroy MD - 07/17/2021 2:53 PM CDT [facility] Patient Name: Slime Miller Procedure Date: 07/17/2021 2:53 PM Date of : 1970 Admit Type: Outpatient Age: 51 Gender: Female Attending MD: Emelia Conroy M.D. Room: [facility] END[facility]COPY ROOM 3 Note Status: Finalized Procedure: Colonoscopy Indications: High risk colon cancer surveillance: Personalhistory of adenoma > 1 cm with villous component (high risk adenoma), Last colonoscopy: March 2018 Referring MD: Eb NassarNAlirio Providers: Emelia Conroy M.D. Medicines: Monitored Anesthesia [...] The scope was passed under direct vision.The CF HQ [id number] endoscope was introducedthrough the anus and advanced to the terminal ileum, with identification of the appendiceal orifice and IC valve. The colonoscopy was performed without difficulty. The patient tolerated the procedurewell. The quality of the bowel preparation was evaluated using the BBPS ([place] Bowel Preparation Scale)with scores of: Right Colon [...] your results within this timeframe, please call [phone] regarding your results. - Contact Information: During normal business hours - Please call theNurse Coordinator: [phone] After hours, evening, nights, weekends and holidays- Please call the hospital transmission system operator at and ask for the GI fellow monument stonecutter. Attending Participation: I personally performed the entire procedure. Electronically Signed By: Emelia Conroy M.D. Emelia Conroy M.D. 07/17/2021 3:19:01 PM . Number of Addenda: 0 Note Initiated On: 07/17/2021 2:53 PM Recognized by the [employer] for promoting quality in endoscopy Emelia Conroy MD ENDOSCOPY PROCEDURES Fin al Result * Screening Mammogram (03/04/2017 3:19 PM [employer]) Anatomical Region Laterality Modality Breast N/A Mammography 03/04/2017 3:19 PM [employer] Narrative 03/04/2017 3:27 PM [employer] DENISE RODRÍGUEZ M.D. FINAL REPORT ACC# Date Time Exam [id number] Mar 04, 2017 09:19:00 [facility] [id number] Procedure Mammo, unilat L Technologist(s): Kristen Interiano; ; [id number] Mar 04, 2017 09:01:00 [facility] [id number] Breast Bx Incl Loc Stereo L EXAMINATION: [...] a #11 scalpel blade. A 9 gauge Suros vacuum-assisted biopsy needle was then advanced through the skin incision to the level of the calcifications of interest in the lateral left breast from a lateral approach utilizing stereotactic guidance and a total of 6 tissue cores were obtained. Specimen radiograph showed calcifications within the sample. [A SecurMark Mini Cork tissue marker clip was then [...] throughout the entire procedure. Dr. Leon (diagnostic academic affairs vice president) also participated in this examination. IMPRESSION: Successful vacuum-assisted core needle biopsy of the LEFT breast utilizing stereotactic guidance. Pathology is pending. Electronically signed by: Denise Rodríguez M.D. ADDENDUM #1 Addendum #1 by CORBY Friedman ACNS-BC for Dr. Denise Rodríguez on 03/12/17 at [...] recommendations by CORBY Friedman ACNS-BC of the [facility] on 03/08/17, and is scheduled to see [...] RODRÍGUEZ M.D. on Mar 18 2017 8:27A [id number] RODRÍGUEZ M.D. FINAL REPORT Attending: TAHIRA CHAVEZ Requesting: Tahira Chavez Requesting Fax: Attending Fax: Attending ID: [id number] Requesting ID: [id number] Report To 1 ID: [id number] Report To 1 Name: , Report To 1 FAX: NextGen Order #: Procedure Note Miscellaneous, Not In File - 03/18/2017 DENISE RODRÍGUEZ M.D. FINAL REPORT ACC# Date Time Exam [id number] Mar 04, 2017 09:19:00 [facility] [id number] Procedure Mammo, unilat L Technologist(s): Kristen Interiano; ; [id number] Mar 04, 2017 09:01:00 [facility] [id number] Breast Bx Incl Loc Stereo L EXAMINATION: [...] a #11 scalpel blade. A 9 gauge Suros vacuum-assisted biopsy needle was then advanced through the skin incision to the level of the calcifications of interest in the lateral left breast from a lateral approach utilizing stereotactic guidance and a total of 6 tissue cores were obtained. Specimen radiograph showed calcifications within the sample. [A SecurMark Mini Cork tissue marker clip was then [...] throughout the entire procedure. Dr. Leon (diagnostic academic affairs vice president) also participated in this examination. IMPRESSION: Successful vacuum-assisted core needle biopsy of the LEFT breast utilizing stereotactic guidance. Pathology is pending. Electronically signed by: Denise Rodríguez M.D. ADDENDUM #1 Addendum #1 by CORBY Friedman ACNS-BC for Dr. Denise Rodríguez on 03/12/17 at [...] These findings were reviewed by Drs. Denise Rodrígeuz and Angie Langston. This is a malignant finding and requires surgical intervention. The patient was notified of the biopsy results and recommendations by CORBY Friedman ACNS-BC of the [facility] on 03/08/17, and is scheduled to see [...] RODRÍGUEZ M.D. on Mar 18 2017 8:27A [id number] SIPE, M.D. FINAL REPORT Attending: TAHIRA CHAVEZ Requesting: Tahira Chavez Requesting Fax: Attending Fax: Attending ID: [id number] Requesting ID: [id number] Report To 1 ID: [id number] Report To 1 Name: , Report To 1 FAX: NextGen Order #: Tahira Chavez [facility] PROCEDURES Edited Result - Final * Serum Hepatitis C ab (02/03/2016 11:52 AM [employer]) HCV ab Negative NEG CDR HISTOR ICAL RESULTS Serum 02/03/2016 11:5 2 AM [employer] us Tahria Chavez [facility] BLOOD ORDERABLES Final R esult CDR HISTORICAL RESULTS from Last 3 Months or Most Recently Relevant to Health Maintenance Insurance CHOICE [facility] [place] Advance Directives For more information, please contact: [phone] Documents on File Type Date Recorded Patient Market Asset Protection Manager Expl anation ADVANCE DIRECTIVE 07/19/2021 6:50 AM POWER OF [employer]BER WATCHMAN[employer]ICAL * Full Code (Latest Code Status on File) Date Activated Date Inactivated Comments 07/17/2021 2:04 PM 07/17/2021 8:20 PM * Full Code Date Activated Date Inactivated Comments 05/10/2018 10:44 AM 05/10/2018 5:56 PM * Full Code Date Activated Date Inactivated Comments 04/12/2018 10:34 AM 04/12/2018 6:11 PM Care Teams Telecommunications Cable Jointer Relationship Specialty Start Date End Date Radha Cifuentes MD [address] [place] [address] [address] [place] [address] [address] PCP - General Internal Medicine 04/01/18
--- NOTE | 2024-08-27 10:45 | ED.GENADULT ---
HPI - General Adult General Chief complaint: Back Pain/Injury Stated complaint: Right Side Pain in Breast and Back Time Seen by Provider: 08/27/24 10:45 Source: patient Mode of arrival: ambulatory Limitations: no limitations History of Present Illness HPI narrative: 54-year-old female patient presents to the [facility] with complaints of right-sided breast and back pain for the past week. Patient has history of bilateral mastectomy due to breast cancer and has had breast reconstruction. Patient states that she had capsular contraction to the left side in which she had surgery on July 07 to correct. Patient states for the last week she has had what she describes as a rug burn pain that goes from the right breast and radiates to the back. There is no itching there is no rash. Denies fevers body aches or chills. Patient states she had something similar to this happen to her on the other side a while ago and had to get her lymph nodes drained due to excessive lymph drainage accumulating. Patient denies any injury to the area. Patient states she did talk to her surgeon yesterday but did not see him and he wanted her to be evaluated to see if this was shingles. Patient states she has been taking Tylenol but states that has not been helping the pain. Patient states unable to take NSAIDs due to her kidney function. Related Data Home Medications ?Medication ?Instructions ?Recorded ?Confirmed ?Last Taken ?Type spironolactone 100 mg tablet mg 08/27/24 Unknown History tirzepatide 2.5 mg/0.5 mL 2.5 mg subcut WEEKLY 08/27/24 08/27/24 Unknown History subcutaneous pen injector (Mounjaro) Allergies Allergy/AdvReac Type Severity Reaction Status Date / Time iodine Allergy Unknown ANAPHYLAXIS Verified 08/27/24 10:51 latex Allergy Unknown Unknown Verified 08/27/24 10:51 minocycline Allergy Unknown Unknown Verified 08/27/24 10:51 shrimp Allergy Unknown ANAPHYLAXIS Verified 08/27/24 10:51 sumatriptan Allergy Unknown Unknown Verified 08/27/24 10:51 Review of Systems Review of Systems: CONSTITUTIONAL: Denies fever, chills, or sweats. EYES: Denies visual changes, redness, or discharge. ENT: Denies rhinorrhea, congestion, sore throat, or otalgia. CARDIOVASCULAR: Denies chest pain, palpitations, or edema. RESPIRATORY: Denies cough or dyspnea. GASTROINTESTINAL: Denies abdominal pain, nausea, vomiting, or diarrhea. GENITOURINARY: Denies dysuria or hematuria. SKIN: Denies rash or itching. MUSCULOSKELETAL: Right-sided back pain right-sided breast pain, denies joint pain, or myalgia. NEUROLOGIC: Denies headache, numbness, or weakness. PSYCHIATRIC: Denies anxiety or depression. [facility] Past Medical History Medical History Malignant neoplasm of breast, estrogen receptor positive Migraines Diverticulosis IBS (irritable bowel syndrome) Anemia Acid reflux Surgical History Surgical History History of breast reconstruction History of hysterectomy with bilateral oophorectomy S/P endometrial ablation Family History Family History Mother Hypertension Father Family history of type 2 diabetes mellitus Social History Social History Smoking status: Never smoker Alcohol intake: current Substance use: never Substance use type: does not use Comments At the time of my signature I agree with nursing past medical history, surgical, social, and family history. There is no relevant family history pertinent to the presenting complaint. Exam Narrative: GENERAL: Well-appearing, well-nourished, and in no acute distress. HEAD: Normocephalic, atraumatic. EYES: PERRLA and EOMI. ENT: Nares clear, no rhinorrhea or epistaxis. Mucous membranes moist. NECK: Supple. No lymphadenopathy CHEST: Clear to auscultation. No respiratory distress. Patient does have surgical scars and scabs noted to the right nipple area but no surrounding erythema, no discharge, no warmth present. No rash noted along any dermatomes. HEART: Regular rate and rhythm. No murmur heard. Normal peripheral pulses. ABDOMEN: Soft, nontender, nondistended, normal active bowel sounds. EXTREMITIES: Normal range of motion. No edema. BACK: Patient is able to ambulated without assistance. Pt is seated on the stretcher in no obvious distress. No surface trauma noted. No muscle tenderness to Palpation. No spasm or mass. No step-offs or deformity noted to the cervical, thoracic or lumbar spine to firm Palpation at the midline. No CVA tenderness to percussion. No saddle anesthesia. ROM: able to stand erect. Normal flexion, extension, Lateral bending and rotation without limitation or complaint of pain. patient does appear to be having a little bit of swelling noted to the right side of the back as compared to the left feels more like a fluid type of swelling no warmth or erythema present no rash present. Patient does have surgical scars scars present with no evidence of infection. SKIN: Warm, dry, no rash. NEURO: No focal deficits. Alert and oriented x3. Course Course Level of Care: Express Care Visit Vital Signs Vital signs: Vital Signs Temperature 36.3 C L 08/27/24 10:50 Pulse Rate 61 08/27/24 10:50 Respiratory Rate 16 08/27/24 10:50 Blood Pressure 122/70 08/27/24 10:50 Pulse Oximetry 100 08/27/24 10:50 Oxygen Delivery Room Air 08/27/24 10:50 Temperature 36.3 C L 08/27/24 10:50 Pulse Rate 61 08/27/24 10:50 Respiratory Rate 16 08/27/24 10:50 Blood Pressure 122/70 08/27/24 10:50 Pulse Oximetry 100 08/27/24 10:50 Oxygen Delivery Room Air 08/27/24 10:50 Vital signs reviewed. Medical Decision Making MDM Narrative Medical decision making narrative: Discussed with patient that I do not see any evidence of a shingle rash and the fact that she has had this now for a week I would expect to see a rash or possibly worsening pain. Discussed with her that this could be nerve pain that is causing the issue or she could also be having issues with the lymph nodes draining as she did in the past due to the fact that we are seeing a little bit of swelling to the back. Discussed with patient that since she cannot take NSAIDs and Tylenol is not helping for the pain we will go ahead and give her a couple of doses of tramadol until she can follow-up with her surgeon this week. Patient states her surgeon is very good about getting her in in a timely manner so she is agreeable with this plan. Differential Diagnosis Differential Diagnosis: Differential diagnosis: STEMI/ACS, AAA, PE, spontaneous pneumothorax, cardiac tamponade, esophageal rupture, pneumonia, GERD, muscle-skeletal pain or trauma, endocarditis, cocaine-related ischemia, pericarditis, URI, bronchitis. Vital Signs Vital Signs: Vital Signs Temperature 36.3 C L 08/27/24 10:50 Pulse Rate 61 08/27/24 10:50 Respiratory Rate 16 08/27/24 10:50 Blood Pressure 122/70 08/27/24 10:50 Pulse Oximetry 100 08/27/24 10:50 Oxygen Delivery Room Air 08/27/24 10:50 Temperature 36.3 C L 08/27/24 10:50 Pulse Rate 61 08/27/24 10:50 Respiratory Rate 16 08/27/24 10:50 Blood Pressure 122/70 08/27/24 10:50 Pulse Oximetry 100 08/27/24 10:50 Oxygen Delivery Room Air 08/27/24 10:50 Critical Care Time Critical Care Time Critical Care Time: No Discharge Plan Discharge Clinical Impression: Postoperative back pain Patient Disposition: Home Condition: Stable Instructions: Antibiotic Form, Peripheral Neuropathy (ED) Additional Instructions: Ice and heat to the area for 20-30 minutes Gentle stretching exercises Gentle massage Caution with lifting, bending, stooping, twisting Avoid pushing, pulling Pain medicine as directed for severe pain--caution drowsiness-no driving or alcohol. If this medicine is a narcotic, you can become constipated. He may want to start a laxative right away. Please call and follow-up with your surgeon for further evaluation and treatment may need to look into medication to help with nerve pain. Follow-up with your PCP if not improving in 5-7 days Patient Language: Yakut Prescriptions: New tramadol 50 mg tablet 50 mg PO Q6H PRN (Reason: pain) 5 Days Qty: 20 0RF No Action spironolactone 100 mg tablet Mounjaro 2.5 mg/0.5 mL pen injector 2.5 mg subcut WEEKLY Rx Instructions: for 4 weeks omeprazole 10 mg capsule,delayed release(DR/EC) 10 mg PO DAILY Qty: 90 1RF Follow-up/Referrals: Xavi,Deirdre Mckeon, [employer] [Primary Care Provider] - Time of Disposition: 11:13
--- OUTSIDE RECORDS SUMMARY | 2024-08-27 10:47 | XMS_ITS | Continuity of Care Document ---
Author Organization [facility] Address [address] [place] [address] [place] [address] Phone Care Team Providers Care Laboratory Worker Name Role Phone Collin Varela MD Unavailable [...] - Active Procedures Procedure Date PREV VISIT, [facility], AGE 40-64 OFFICE/OUTPATIENT VISIT, [facility] Advance Directives Directive Yes / No Effective Date File Name No Information Encounters Encounter Description Practice Location Reason(s) For Visit Diagnoses Date Provider Providers Copied on Encounter PREV VISIT, NEW, AGE 40-64 [facility], [address] [place], [id number], [place] tel:[phone] [facility] physical (chief complaint) Obstructive sleep apnea hypopneaAbnormal weight gainAcneEncounter for general adult medical exam w abnormal findings [address]. [address] [place], [place], [id number] , [place]. tel:[phone] Family History Family Member Type Diagnosis Age At Onset Sister Problem Hypertension Mother Problem Hypertension Father Problem Diabetes mellitus Father Problem Renal disease Father Problem Stroke 51 Payers Payer name Insurance type Covered democrat ID Authoriza tiyessy(s) [facility] CI [id number] Social History Type Description Quantity Date Captured [...] Mental Status Date Cognitive Assessment Orientation - [place] ed to time, place, person, situation.
--- OUTSIDE RECORDS SUMMARY | 2024-08-27 10:47 | XMS_ITS | CONTINUITY OF CARE DOCUMENT ---
Author Name elliott gallagher Address Unknown Organization [facility] Address [address] [place] [address] Phone [phone] Care Team Providers Care Facility Engineer Name Role Phone Brennen Espinoza MD Unavailable Yanely Evans MD Unavailable [phone] TUT[address] GONZALEZ Unavailable PROBLEMS Condition Status Date Provider Notes Cardiovascular screening active Erica luna INSURANCE PROVIDERS Payer name Policy type / Coverage type [place] [employer] ID [id number] PAY TREATMENT PLAN Date Name CT, Coronary Calcium Score CT, Coronary Calcium Score
--- OUTSIDE RECORDS SUMMARY | 2024-08-27 10:47 | XMS_ITS | Continuity of Care Document ---
Author Organization [facility] Address [address] [facility] [place] [address] Phone Care Team Providers Care Promotion Writer Name Role Phone Collin Varela MD Unavailable Unavailable Advance Directives Directive Yes / No Effective Date File Name No Information Encounters Encounter Description Practice Location Reason(s) For Visit Diagnoses Date Provider Providers Copied on Encounter [facility], [address] [place], [id number], [place] tel:[phone] [facility] No Information [facility] Pol[address]. [address] [place], [place], [id number], [place]. tel:[phone] Family History Family Member Type Diagnosis Age [...]
[2024-08-27 10:50] VITALS: BP 122/70; PULSE 61; RESP 16; TEMP 36.3; O2SAT 100
== END 2024-08-27 11:16 | disposition home or self-care (01) ==
PROVIDERS: Emergency Provider Nurse Practitioner Family
DX: G89.18 Other acute postprocedural pain (principal); K21.9 Gastro-esophageal reflux disease without esophagitis; Z85.3 Personal history of malignant neoplasm of breast; Z90.13 Acquired absence of bilateral breasts and nipples
CPT/HCPCS: 99213; G0463